=== PATIENT | male | born 1945 | race Caucasian/White ===

== ENCOUNTER 2017-12-03 09:01 | Day surgery (SDC) | payer MEDICARE, BC ==
[2017-11-30 09:03] VITALS: BMI 31.8
[~2017-12-03 09:01] MED LIST: LACTATED RINGERS 1,000 ML IV SCH
[2017-12-03 09:34] VITALS: TEMP 98.4
[2017-12-03] MEDS ORDERED: LIDOCAINE 1% 20 ML VIAL (10MG/ML) FOR IV START INTRADERMA ONE (09:47)
[2017-12-03 09:57] LABS: Glucose,Whole Blood 132 mg/dL (75-99)
[2017-12-03] MEDS ORDERED: PROPOFOL 10 MG/ML 20 ML VIAL IV ONE (10:01)
--- NOTE | 2017-12-03 10:03 | P.GSHP ---
History of Present Illness H&P Date: 12/03/17 Chief Complaint: GI bleed This is a 72-year-old male who presents today for EGD colonoscopy. Patient has history of GI bleed with blood in stool and epigastric pain. Past Medical History Past Medical History: Coronary Artery Disease (CAD), Diabetes Mellitus, Hyperlipidemia, Sleep Apnea/CPAP/BIPAP, Thyroid Disorder Additional Past Medical History / Comment(s): HAS AICD, [employer]. RECENT BLACK STOOL, WGT LOSS, ANEMIC, LIGHTHEADED, POSS GI BLEED/POSS ULCER. NOT ABLE TO USE CPAP. History of Any Multi-Drug Resistant Organisms: None Reported Past Surgical History: AICD, Coronary Bypass/CABG, Heart Catheterization Additional Past Surgical History / Comment(s): QUAD CABG 1991. ABD STENT. RT CAROTID ENDARTERECTOMY. AICD GENERATOR CHANGE. LT ELBOW BURSA EXC. Past Anesthesia/Blood Transfusion Reactions: No Reported Reaction Type of Cardiac Device: AICD Device Placement Date:: 2015 Smoking Status: Current every day smoker - Past Family History Mother Family Medical History: Cancer Additional Family Medical History / Comment(s): MULTIPLE MYELOMA Medications and Allergies Home Medications Medication Instructions Recorded Confirmed Type Aspirin 81 mg PO HS 03/30/15 12/03/17 History Atenolol [Tenormin] 50 mg PO HS 03/30/15 12/03/17 History Clopidogrel [Plavix] 75 mg PO HS 03/30/15 12/03/17 History Furosemide [Lasix] 40 mg PO PC-LUNCH 03/30/15 12/03/17 History Lisinopril [Zestril] 2.5 mg PO HS 03/30/15 12/03/17 History Metolazone [Zaroxolyn] 2.5 mg PO Q3D 03/30/15 12/03/17 History Nitroglycerin Sl Tabs [Nitrostat] 0.4 mg SUBLINGUAL Q5M PRN 03/30/15 12/03/17 History [place]-3 Fatty Acids [[place]-3] 900 mg PO BID 03/30/15 12/03/17 History Potassium Chloride [Klor-Con 20] 20 meq PO Q3D 03/30/15 12/03/17 History Vitamin D Liquid Supplement 1 drop PO PC-LUNCH 03/30/15 12/03/17 History metFORMIN HCL [Glucophage] 500 mg PO BID 03/30/15 12/03/17 History Allopurinol [Zyloprim] 300 mg PO HS 11/30/17 12/03/17 History Atorvastatin Calcium [Lipitor] 80 mg PO HS 11/30/17 12/03/17 History Ferrous Sulfate [Feosol] 325 mg PO BID 11/30/17 12/03/17 History Gemfibrozil [Lopid] 600 mg PO AC-BID 11/30/17 12/03/17 History Levothyroxine Sodium [Synthroid] 50 mcg PO DAILY 11/30/17 12/03/17 History Omeprazole [PriLOSEC] 40 mg PO DAILY 11/30/17 12/03/17 History Sucralfate [Carafate] 1 gm PO BID 11/30/17 12/03/17 History Allergies Allergy/AdvReac Type Severity Reaction Status Date / Time No Known Allergies Allergy Verified 12/03/17 09:36 Surgical - Exam Vital Signs Temp Pulse Resp BP Pulse Ox 98.4 F 90 16 137/82 98 12/03/17 09:33 12/03/17 09:33 12/03/17 09:33 12/03/17 09:33 12/03/17 09:33 - General well developed, well nourished, no distress - Eyes PERRL - ENT normal pinna - Neck no masses - Respiratory normal expansion - Cardiovascular Rhythm: regular - Abdomen Abdomen: soft, non tender Results - Labs Abnormal Lab Results - Last 24 Hours (Table) 12/03/17 Range/Units 09:55 POC Glucose (mg/dL) 132 H (75-99) mg/dL Assessment and Plan Assessment: GI bleed. We'll perform colonoscopy.
[2017-12-03 10:29] VITALS: RESP 18
--- NOTE | 2017-12-03 11:22 | P.OP ---
Date of Procedure: 12/03/17 Preoperative Diagnosis: GI bleed Epigastric pain Postoperative Diagnosis: Antral gastritis Rectal polyp Mild diverticulosis Procedure(s) Performed: EGD Colonoscopy Anesthesia: MAC Surgeon: Cipriano Acevedo Pathology: other (Antrum, rectal polyp) Condition: stable Disposition: PACU Description of Procedure: The patient's placed on the endoscopy table in the lateral position. He received IV sedation. Digital rectal exam was performed which revealed no abnormalities. Flexible colonoscope was then placed patient anus passed rotator colon. The ileocecal valve sutures. The cecum, ascending and transverse colon appeared normal. In the descending and sigmoid colon is mild diverticular changes. Scope was then brought back the rectum and a small polyp seen in the forcep. Scope was withdrawn for patient. Next the gastroscope placed oropharynx passed in the esophagus into the stomach. Scope was then placed through the pylorus. First and second portion of the duodenum appeared normal. Scope was then brought back the antrum and this was moderately inflamed. There is no ulcers seen. A biopsy the antrum performed. Scope was then retroflexed and the remainder of the stomach appeared normal. No significant hiatal hernia. The GE junction was at 40 cm the distal esophagus appeared normal. The proximal esophagus appeared normal. Scope was withdrawn for patient.
[2017-12-03] MEDS ORDERED: SODIUM CHLORIDE 0.9% 1,000 ML IV ONE (12:42)
[2017-12-03] MEDS ORDERED: LACTATED RINGERS 1,000 ML IV ONE (12:50)
--- NOTE | 2017-12-03 14:40 | P.CRDCN ---
History of Present Illness History of present illness: Mr. Latif is a pleasant 72-year-old male past medical history significant for coronary artery disease status post bypass grafting in 1991 with an SVG to the RCA, CHATTERJEE to LAD, SVG to diagonal and SVG to circumflex. Most recent heart catheterization performed in 2007 revealed the only graft patent with a CHATTERJEE to LAD. He also has ischemic cardiomyopathy last ejection fraction 2015 45%, status post AICD placement, hypertension, dyslipidemia and diabetes mellitus. He follows with Dr. Ayoub in the office. If necessary my consultation secondary to syncopal episode after colonoscopy/EGD. Per the detention recovery the patient was being prepared for discharge placed into a wheelchair and being wheeled out when she noticed he was slumped over in the chair. She immediately woke up and states that while he was getting dressed after his procedure he felt the discomfort in his chest which she frequently feels at home he took a sublingual nitroglycerin as he does regularly at home. He states the pain felt tight in the midsternal region with no radiation to the back, neck, arm or jaw. He had no associated shortness of breath, dizziness, nausea, vomiting or diaphoresis. Blood pressure was checked immediately thereafter was 151/76 with heart rate of 79. He denies any ongoing symptoms of chest pain. EKG obtained reveals left bundle branch block pattern with PVC. Review of Systems At the time of my exam: CONSTITUTIONAL: Denies fever. Denies chills. EYES: Denies blurred vision. Denies vision changes. Denies eye pain. EARS, NOSE, MOUTH & THROAT: Denies headache. Denies sore throat. Denies ear pain. CARDIOVASCULAR: Denies chest pain. Denies shortness of breath. Denies orthopnea. Denies PND. Denies palpitations. RESPIRATORY: Denies cough. GASTROINTESTINAL: Denies abdominal pain. Denies diarrhea. Denies constipation. Denies nausea. Denies vomiting. MUSCULOSKELETAL: Denies myalgias. INTEGUMENTARY: Denies pruitis. Denies rash. NEUROLOGIC: Denies numbness. Denies tingling. Denies weakness. PSYCHIATRIC: Denies anxiety. Denies depression. ENDOCRINE: Denies fatigue. Denies weight change. Denies polydipsia. Denies polyurina. GENITOURINARY: Denies burning, hematuria or urgency with micturation. HEMATOLOGIC: Denies history of anemia. Denies bleeding. Past Medical History Past Medical History: Coronary Artery Disease (CAD), Diabetes Mellitus, Hyperlipidemia, Sleep Apnea/CPAP/BIPAP, Thyroid Disorder Additional Past Medical History / Comment(s): HAS AICD, [employer]. RECENT BLACK STOOL, WGT LOSS, ANEMIC, LIGHTHEADED, POSS GI BLEED/POSS ULCER. NOT ABLE TO USE CPAP. History of Any Multi-Drug Resistant Organisms: None Reported Past Surgical History: AICD, Coronary Bypass/CABG, Heart Catheterization Additional Past Surgical History / Comment(s): QUAD CABG 1991. ABD STENT. RT CAROTID ENDARTERECTOMY. AICD GENERATOR CHANGE. LT ELBOW BURSA EXC. Past Anesthesia/Blood Transfusion Reactions: No Reported Reaction Type of Cardiac Device: AICD Device Placement Date:: 2015 Smoking Status: Current every day smoker - Past Family History Mother Family Medical History: Cancer Additional Family Medical History / Comment(s): MULTIPLE MYELOMA Medications and Allergies Home Medications Medication Instructions Recorded Confirmed Type Aspirin 81 mg PO HS 03/30/15 12/03/17 History Atenolol [Tenormin] 50 mg PO HS 03/30/15 12/03/17 History Clopidogrel [Plavix] 75 mg PO HS 03/30/15 12/03/17 History Furosemide [Lasix] 40 mg PO PC-LUNCH 03/30/15 12/03/17 History Lisinopril [Zestril] 2.5 mg PO HS 03/30/15 12/03/17 History Metolazone [Zaroxolyn] 2.5 mg PO Q3D 03/30/15 12/03/17 History Nitroglycerin Sl Tabs [Nitrostat] 0.4 mg SUBLINGUAL Q5M PRN 03/30/15 12/03/17 History [place]-3 Fatty Acids [[place]-3] 900 mg PO BID 03/30/15 12/03/17 History Potassium Chloride [Klor-Con 20] 20 meq PO Q3D 03/30/15 12/03/17 History Vitamin D Liquid Supplement 1 drop PO PC-LUNCH 03/30/15 12/03/17 History metFORMIN HCL [Glucophage] 500 mg PO BID 03/30/15 12/03/17 History Allopurinol [Zyloprim] 300 mg PO HS 11/30/17 12/03/17 History Atorvastatin Calcium [Lipitor] 80 mg PO HS 11/30/17 12/03/17 History Ferrous Sulfate [Feosol] 325 mg PO BID 11/30/17 12/03/17 History Gemfibrozil [Lopid] 600 mg PO AC-BID 11/30/17 12/03/17 History Levothyroxine Sodium [Synthroid] 50 mcg PO DAILY 11/30/17 12/03/17 History Omeprazole [PriLOSEC] 40 mg PO DAILY 11/30/17 12/03/17 History Sucralfate [Carafate] 1 gm PO BID 11/30/17 12/03/17 History Allergies Allergy/AdvReac Type Severity Reaction Status Date / Time No Known Allergies Allergy Verified 12/03/17 09:36 Physical Exam Vitals: Vital Signs Temp Pulse Resp BP BP Pulse Ox 12/03/17 11:45 78 18 162/67 99 12/03/17 11:36 55 L 18 162/67 96 12/03/17 11:02 79 18 151/76 99 12/03/17 10:27 75 18 130/68 97 12/03/17 09:33 98.4 F 90 16 137/82 98 Intake and Output 12/02/17 12/03/17 12/03/17 22:59 06:59 14:59 Intake Total 300 Balance 300 Intake: IV 300 Blood pressure 162/67 heart rate 55 afebrile maintaining oxygen saturation on room air GENERAL: This is a 72-year-old male in no apparent distress at the time of my examination. HEENT: Head is atraumatic, normocephalic. Pupils are equal, round. Sclerae anicteric. Conjunctivae are clear. Mucous membranes of the mouth are moist. Neck is supple. There is no jugular venous distention. No carotid bruit is heard. LUNGS: Clear to auscultation no wheezes, rales or rhonchi. No chest wall tenderness is noted on palpation or with deep breathing. HEART: Irregular rate and rhythm without murmurs, rubs or gallops. S1 and S2 heard. ABDOMEN: Soft, nontender. Bowel sounds are heard. No organomegaly noted. EXTREMITIES: No evidence of peripheral edema and no calf tenderness noted. VASCULAR: Radial and dorsalis pedis pulses palpated, no evidence of clubbing. NEUROLOGIC: Patient is awake, alert and oriented x3. Results Current Medications Generic Name Dose Route Start Last Admin Trade Name Gamaliel PRN Reason Stop Dose Admin Lactated Ringer's 1,000 mls @ 20 mls/hr 12/03/17 05:36 12/03/17 09:48 Lactated Ringers IV 800 mls .Q24H AARON Administration Intake and Output 12/02/17 12/03/17 12/03/17 22:59 06:59 14:59 Intake Total 300 Balance 300 Intake: IV 300 Assessment and Plan Assessment: ASSESSMENT Syncope status post EGD/colonoscopy History of coronary artery disease status post bypass grafting History of ischemic cardiomyopathy ejection fraction 45% status post AICD pacemaker implantation Hypertension Dyslipidemia Diabetes mellitus Peripheral vascular disease PLAN Give 1-liter of IV fluids slowly over the next 90 minutes. Fee the patient and encouraged PO intake of water. Repeat blood pressure after bolus. If no further syncope, he is stable from a cardiac perspective. Thank you kindly for this consultation. Nurse Practitioner note has been reviewed, I agree with a documented findings and plan of care. Patient was seen and examined.
[2017-12-03 15:26] VITALS: PULSE 94
[2017-12-03 15:29] VITALS: BP 127/71
--- NOTE | 2017-12-06 08:13 | CDI ---
Date: 12/06/17 CDS/Audio Operator Name: Lise Enciso Phone: If any questions, call Brenna Petty Captain Waiter/Waitress at [phone] Patient Name: Christian Latif Admit Date: 12/03/17 Discharge Date: 12/03/17 ATTENTION: The [facility] Coding Staff appreciate your assistance in clarifying documentation. Please respond to the clarification below the line at the bottom and electronically sign. The [facility] Coding staff will review the response and follow-up if needed. Please note: Queries are made part of the Legal Health Record. If you have any questions, please contact the Captain Waiter/Waitress. Dear Dr. Acevedo, Please provide clarification as to the method used to remove the rectal polyp. Also, please provide clarification for the cause of the GI Bleed. Please clarify if the polyp was removed with hot or cold biopsy forceps and if the GI bleed is secondary to any of the conditions found (gastritis, Diverticulosis, polyp). Thank you for your kind consideration. The cold forcep was used. I'm unable to determine the source of GI bleed MTDD
== END 2017-12-03 15:40 | disposition home or self-care (01) ==
LOC: ORWHC2ENDO 09:01
PROVIDERS: ATTEND Surgery
DX: K57.90 Diverticulosis of intestine, part unspecified, without perforation or abscess without bleeding (principal); K29.50 Unspecified chronic gastritis without bleeding; K62.1 Rectal polyp; I25.10 Atherosclerotic heart disease of native coronary artery without angina pectoris; I10 Essential (primary) hypertension; E11.9 Type 2 diabetes mellitus without complications; Z79.84 Long term (current) use of oral hypoglycemic drugs; E78.5 Hyperlipidemia, unspecified; G47.33 Obstructive sleep apnea (adult) (pediatric); E07.9 Disorder of thyroid, unspecified; Z95.810 Presence of automatic (implantable) cardiac defibrillator; Z95.1 Presence of aortocoronary bypass graft; F17.200 Nicotine dependence, unspecified, uncomplicated; Z79.02 Long term (current) use of antithrombotics/antiplatelets; Z79.82 Long term (current) use of aspirin; Z79.890 Hormone replacement therapy; Z79.899 Other long term (current) drug therapy; R55 Syncope and collapse; I44.7 Left bundle-branch block, unspecified
CPT/HCPCS: 93005; 88305; 45380; 43239; J2704

== ENCOUNTER 2018-02-04 09:24 | Day surgery (SDC) | payer MEDICARE, BC ==
[~2018-02-04 09:24] MED LIST changes: +ALPRAZolam 0.25 MG TAB PO PRN; +ALPRAZolam 0.5 MG TAB PO PRN; +ASPIRIN 325 MG TAB PO ONE; +ATORVASTATIN 80 MG TAB PO ONE; -LACTATED RINGERS 1,000 ML IV SCH; +NITROGLYCERIN SL TABS 0.4 MG TAB SUBLINGUAL PRN; +SODIUM CHLORIDE 0.9% 1,000 ML in EMPTY BAG 1 BAG IV ONE
[2018-02-04 10:12] LABS: Glucose,Whole Blood 155 mg/dL (75-99)
[2018-02-04] MEDS ORDERED: SODIUM CHLORIDE 0.9% 1,000 ML IV ONE (10:14)
[2018-02-04 10:29] VITALS: RESP 16
[2018-02-04 10:29] LABS: Basophils % (A) 0 %; Eosinophils # (A) 0.3 k/uL (0-0.7); Eosinophils % (A) 3 %; HCT 35.7 % (39.0-53.0); HGB 11.2 gm/dL (13.0-17.5); Lymphocytes # (A) 2.6 k/uL (1.0-4.8); Lymphocytes % (A) 27 %; MCH 28.5 pg (25.0-35.0); MCHC 31.5 g/dL (31.0-37.0); MCV 90.5 fL (80.0-100.0); Mean Platelet Volume 8.2; Monocytes # (A) 0.6 k/uL (0-1.0); Monocytes % (A) 7 %; Neutrophils # (A) 5.7 k/uL (1.3-7.7); Neutrophils % (A) 60 %; Platelet Count 218 k/uL (150-450); RBC 3.95 m/uL (4.30-5.90); RDW 15.4 % (11.5-15.5); WBC 9.5 k/uL (3.8-10.6)
[2018-02-04] MEDS ORDERED: ASPIRIN 81 MG ONE (10:30)
[2018-02-04 10:36] LABS: Calcium 9.8 mg/dL (8.4-10.2); Potassium 3.7 mmol/L (3.5-5.1)
[2018-02-04] MEDS ORDERED: SODIUM CHLORIDE 0.9% 1,000 ML IV SCH ×2 (11:00→12:15)
[2018-02-04] MEDS ORDERED: LIDOCAINE 1% INJ 10MG/ML (20 ML MDV) ONE (11:37)
[2018-02-04] MEDS ORDERED: MIDAZOLAM 2 MG/2 ML VIAL ONE (11:38)
[2018-02-04] MEDS ORDERED: fentaNYL (PF) 50 MCG/ML 2 ML AMP ONE (11:44)
[2018-02-04] MEDS ORDERED: MIDAZOLAM 2 MG/2 ML VIAL IV ONE (11:45)
[2018-02-04] MEDS ORDERED: LIDOCAINE 1% INJ 10MG/ML (20 ML MDV) SQ ONE (11:48)
[2018-02-04] MEDS ORDERED: RX INFO: IV CONTRAST WAS GIVEN 1 EACH MISC MISCELLANE PRN (12:12)
[2018-02-04] MEDS ORDERED: IOPAMIDOL-370 125ML BTL INJ ONE (12:12)
[2018-02-04 16:54] LABS: Glucose,Whole Blood 143 mg/dL (75-99)
[2018-02-04 16:57] VITALS: BP 130/60; PULSE 46; TEMP 97.7
[2018-02-04 17:10] VITALS: BMI 30.2
--- NOTE | 2018-02-05 18:42 | P.CARDCATH ---
Date of Procedure: 02/05/18 Preoperative Diagnosis: Ischemic cardiac myopathy, sustained ventricular tachycardia requiring shock from AICD. Rule out progression of ischemic heart disease Postoperative Diagnosis: The same Procedure(s) Performed: Left heart catheterization without left ventriculography Description of Procedure: HISTORY: This is a 72-year-old gentleman with history of previous bypass surgery , cardiomyopathy status post AICD placement. Recently patient was found to have an episode of ventricular fibrillation requiring shock from the AICD. Patient is advised to have cardiac catheterization to rule out any progression of ischemic heart disease. CONSENT:I have discussed the risks, benefits and alternative therapies for the above-mentioned procedure and for both sedation/analgesia as well as necessary blood product administration, if indicated, as they pertain to this patient. The patient has indicated understanding and acceptance of the risks and procedures discussed. PROCEDURE: Patient was brought to the lab in a fasting state. Patient was given some IV sedation. The right groin is infiltrated with lidocaine and right femoral artery was entered using Seldinger technique. A 6-Pashto catheter was left in place and selective coronary arteriography including selective injection of the CHATTERJEE graft was performed. Patient tolerated the procedure well. Femoral angiogram was performed and manual compression was applied for hemostasis. No immediate complications were noted and patient was transferred to [facility] in a stable condition Conscious Sedation: Versed 1mg Fentanyl 50 g Duration 30 minutes HEMODYNAMICS:. The aortic pressure is about 130/70. Left ventricular end- diastolic pressure was not obtained SELECTIVE CORONARY ARTERIOGRAPHY: LEFT MAIN: Normal length with the mild to moderate distal disease with 30-40 personal stenosis. No significant progression compared to the previous studies THE LEFT ANTERIOR DESCENDING CORONARY ARTERY:. This is totally occluded THE LEFT CIRCUMFLEX AND IS CORONARY ARTERY:. This is a moderate caliber vessel showing about 40-50% lesion in the proximal portion. No Sigmund progression compared to the previous studies THE RIGHT CORONARY ARTERY: Is totally occluded. THE CHATTERJEE GRAFT TO THE LAD: This is patent throat its length and also the distal anastomosis. The LAD beyond the anastomosis appeared free of occlusive disease. THE VEIN GRAFTS: All vein grafts are documented to be totally occluded from the previous studies. COLLATERALS: There are extensive collaterals from the left system to the right coronary artery. LEFT VENTRICULOGRAPHY: Not performed. Because of his renal failure least amount of dye was used of study FINAL IMPRESSION: Stable coronary artery disease with patent CHATTERJEE graft to the LAD PLAN: Continued medical therapy PROGNOSIS:. Fair
== END 2018-02-04 19:45 | disposition home or self-care (01) ==
LOC: CATHCVL 09:24 → 1SOBS 12:06 → CATHCVL 19:45
PROVIDERS: ATTEND Internal Medicine Cardiovascular Disease
DX: I25.10 Atherosclerotic heart disease of native coronary artery without angina pectoris (principal); I25.82 Chronic total occlusion of coronary artery; I10 Essential (primary) hypertension; E78.5 Hyperlipidemia, unspecified; I25.9 Chronic ischemic heart disease, unspecified; I49.01 Ventricular fibrillation; E78.00 Pure hypercholesterolemia, unspecified; F17.200 Nicotine dependence, unspecified, uncomplicated; E66.9 Obesity, unspecified; I25.2 Old myocardial infarction; Z79.02 Long term (current) use of antithrombotics/antiplatelets; Z79.82 Long term (current) use of aspirin; Z79.899 Other long term (current) drug therapy; Z79.890 Hormone replacement therapy; Z95.1 Presence of aortocoronary bypass graft; Z95.810 Presence of automatic (implantable) cardiac defibrillator; Z79.84 Long term (current) use of oral hypoglycemic drugs; Z68.30 Body mass index [BMI] 30.0-30.9, adult
CPT/HCPCS: 80048; 85025; 93459; J2250; J2001; Q9967; 93458

== ENCOUNTER 2020-05-21 07:30 | Inpatient (IN) | payer MEDICARE, BC ==
--- NOTE | 2020-05-21 07:43 | ED ---
Dizziness HPI - General Chief Complaint: Dizziness Stated Complaint: dizziness Time Seen by Provider: 05/21/20 07:30 Source: patient, EMS, RN notes reviewed, old records reviewed Mode of arrival: EMS - History of Present Illness Initial Comments: This is a 74-year-old male with a history of hypertension diabetes and AICD who states that he's been slightly lightheaded and weak exertional dyspnea and generally no strength. No overt chest pain does states his AICD went off about a week ago he saw his post secondary professional several days later was placed on amiodarone which was about 3 days ago. He states he relates only symptoms to the amiodarone. He denies any fevers chills nausea vomiting sweats he states he leaves he is eating adequately. He states he is under last stress as his about a month ago he's been dealing with that. No other current complaints or modifying factors MD Complaint: dizziness, lightheadedness, other - Related Data Home Medications Medication Instructions Recorded Confirmed Aspirin 81 mg PO DAILY@0030 03/30/15 05/21/20 Clopidogrel [Plavix] 75 mg PO DAILY@00303/30/15 05/21/20 Vitamin D Liquid Supplement 1 drop PO PC-LUNCH 03/30/15 05/21/20 atenoloL [Tenormin] 50 mg PO DAILY@2903/30/15 05/21/20 lisinopriL [Zestril] 2.5 mg PO DAILY@00303/30/15 05/21/20 Atorvastatin Calcium [Lipitor] 80 mg PO DAILY@00311/30/17 05/21/20 Ferrous Sulfate [Iron (65 MG 325 mg PO BID@003,122911/30/17 05/21/20 Elemental)] Gemfibrozil [Lopid] 600 mg PO BID@0030,12311/30/17 05/21/20 Levothyroxine Sodium [Synthroid] 50 mcg PO AC-BRKFST 11/30/17 05/21/20 Sucralfate [Carafate] 1 gm PO BID@0030,12311/30/17 05/21/20 allopurinoL [Zyloprim] 300 mg PO DAILY@00311/30/17 05/21/20 Amiodarone HCl [Pacerone] See Taper PO Q12H 05/21/20 05/21/20 metFORMIN HCL [Glucophage] 500 mg PO BID@0030,1230 05/21/20 05/21/20 Previous Rx's Medication Instructions Recorded Nitroglycerin Sl Tabs [Nitrostat] 0.4 mg SUBLINGUAL Q5M PRN tab 02/04/18 Allergies Allergy/AdvReac Type Severity Reaction Status Date / Time No Known Allergies Allergy Verified 05/21/20 09:40 Review of Systems ROS Statement: Those systems with pertinent positive or pertinent negative responses have been documented in the HPI. ROS Other: All systems not noted in ROS Statement are negative. Past Medical History Past Medical History: Blood Disorder, Coronary Artery Disease (CAD), Chest Pain / Angina, Diabetes Mellitus, Eye Disorder, GERD/Reflux, Hyperlipidemia, Sleep Apnea/CPAP/BIPAP, Thyroid Disorder Additional Past Medical History / Comment(s): HAS AICD, [employer]. BLACK STOOL 11/2017, WGT LOSS, ANEMIC, LIGHTHEADED, TOLD D/T GASTRITIS - HAD CP AFTER ENDO PROC 11/2017. NOT ABLE TO USE CPAP. SADI CATARACTS. GOUT. History of Any Multi-Drug Resistant Organisms: None Reported Past Surgical History: AICD, Coronary Bypass/CABG, Heart Catheterization, Orthopedic Surgery Additional Past Surgical History / Comment(s): QUAD CABG 1991. ABD STENT. RT CAROTID ENDARTERECTOMY. AICD, GENERATOR CHANGE. LT ELBOW BURSA EXC. EGD, COLONOSCOPY 12/03/17. Past Anesthesia/Blood Transfusion Reactions: No Reported Reaction Type of Cardiac Device: AICD Device Placement Date:: 2015 Past Psychological History: No Psychological Hx Reported Smoking Status: Current every day smoker Past Alcohol Use History: Rare Past Drug Use History: None Reported - Past Family History Father Family Medical History: Myocardial Infarction (SC) Additional Family Medical History / Comment(s): AT 60 WITH SC Brother(s) Family Medical History: Coronary Artery Disease (CAD) Additional Family Medical History / Comment(s): CABG-TWIN BROTHER Mother Family Medical History: Cancer Additional Family Medical History / Comment(s): MULTIPLE MYELOMA General Exam - General Exam Comments Initial Comments: This is a well-developed well-nourished awake alert oriented 3 male General appearance: alert, anxious Head exam: Present: atraumatic, normocephalic, normal inspection Eye exam: Present: normal appearance, PERRL, EOMI. Absent: scleral icterus, conjunctival injection, periorbital swelling ENT exam: Present: normal exam, mucous membranes moist Neck exam: Present: normal inspection, full ROM, other (No stridor JVD or bruits). Absent: tenderness, meningismus, lymphadenopathy Respiratory exam: Present: normal lung sounds bilaterally, other (AICD generator noted in the left upper chest wall subcutaneously). Absent: respiratory distress, wheezes, rales, rhonchi, stridor Cardiovascular Exam: Present: regular rate, normal rhythm, normal heart sounds. Absent: systolic murmur, diastolic murmur, rubs, gallop, clicks GI/Abdominal exam: Present: soft, normal bowel sounds. Absent: distended, tenderness, guarding, rebound, rigid, bruit, pulsatile mass Extremities exam: Present: normal inspection, full ROM, normal capillary refill. Absent: tenderness, pedal edema, joint swelling, calf tenderness Back exam: Present: normal inspection Neurological exam: Present: alert, oriented X3, CN II-XII intact Psychiatric exam: Present: normal affect, normal mood Skin exam: Present: warm, dry, intact, normal color. Absent: rash Course Vital Signs 05/21/20 05/21/20 05/21/20 07:34 08:18 09:48 Temperature 98.3 F Pulse Rate 77 73 Respiratory 18 18 Rate Blood Pressure 113/70 112/77 Blood Pressure 127/83 [Left Arm Sitting] Blood Pressure 128/67 [Left Arm Standing] Blood Pressure 127/94 [Left Arm Supine] O2 Sat by Pulse 98 97 Oximetry - Reevaluation(s) Reevaluation #1: 05/21/20 10:51 Elevated lactic acid is likely due to intravascular volume depletion not infectious etiology EKG Findings - EKG Results: EKG: interpreted by ERMD (Atrial fibrillation rate 76 QRS 148 QT since QTC 446/501 at that exodeviation left bundle-branch block) Medical Decision Making - Medical Decision Making I did discuss findings with patient family patient does have evidence of CHF as well as hypomagnesemia he will be admitted discussed with Dr. Pascual's group covering for Dr. Grullon - Lab Data Result diagrams: 05/21/20 07:50 05/21/20 07:50 Lab Results 05/21/20 05/21/2021 Range/Units 07:39 07:50 07:50 WBC 9.6 (3.8-10.6) k/uL RBC 3.87 L (4.30-5.90) m/uL Hgb 11.6 L (13.0-17.5) gm/dL Hct 35.8 L (39.0-53.0) % MCV 92.3 (80.0-100.0) fL MCH 29.9 (25.0-35.0) pg MCHC 32.4 (31.0-37.0) g/dL RDW 15.2 (11.5-15.5) % Plt Count 215 (150-450) k/uL MPV 8.9 Neutrophils % 65 % Lymphocytes % 24 % Monocytes % 7 % Eosinophils % 3 % Basophils % 1 % Neutrophils # 6.2 (1.3-7.7) k/uL Lymphocytes # 2.3 (1.0-4.8) k/uL Monocytes # 0.7 (0-1.0) k/uL Eosinophils # 0.3 (0-0.7) k/uL Basophils # 0.0 (0-0.2) k/uL PT 10.6 (9.0-12.0) sec INR 1.0 (<1.2) APTT 23.1 (22.0-30.0) sec Sodium (137-145) mmol/L Potassium (3.5-5.1) mmol/L Chloride (98-107) mmol/L Carbon Dioxide (22-30) mmol/L Anion Gap mmol/L BUN (9-20) mg/dL Creatinine (0.66-1.25) mg/dL Est GFR (CKD-EPI)AfAm (>60 ml/min/1.73 sqM) Est GFR (CKD-EPI)NonAf (>60 ml/min/1.73 sqM) Glucose (74-99) mg/dL Lactic Ac Sepsis Rflx Plasma Lactic Acid Guy (0.7-2.0) mmol/L Calcium (8.4-10.2) mg/dL Magnesium (1.6-2.3) mg/dL Total Bilirubin (0.2-1.3) mg/dL AST (17-59) U/L ALT (4-49) U/L Alkaline Phosphatase (38-126) U/L Creatine Kinase (55-170) U/L Troponin I (0.000-0.034) ng/mL NT-Pro-B Natriuret Pep 5090 pg/mL Total Protein (6.3-8.2) g/dL Albumin (3.5-5.0) g/dL Urine Color Urine Appearance (Clear) Urine pH (5.0-8.0) Ur Specific Minto (1.001-1.035) Urine Protein (Negative) Urine Glucose (UA) (Negative) Urine Ketones (Negative) Urine Blood (Negative) Urine Nitrite (Negative) Urine Bilirubin (Negative) Urine Urobilinogen (<2.0) mg/dL Ur Leukocyte Esterase (Negative) Coronavirus (PCR) (Not Detectd) 05/21/20 05/21/20 05/21/20 Range/Units 07:50 07:50 07:50 WBC (3.8-10.6) k/uL RBC (4.30-5.90) m/uL Hgb (13.0-17.5) gm/dL Hct (39.0-53.0) % MCV (80.0-100.0) fL MCH (25.0-35.0) pg MCHC (31.0-37.0) g/dL RDW (11.5-15.5) % Plt Count (150-450) k/uL MPV Neutrophils % % Lymphocytes % % Monocytes % % Eosinophils % % Basophils % % Neutrophils # (1.3-7.7) k/uL Lymphocytes # (1.0-4.8) k/uL Monocytes # (0-1.0) k/uL Eosinophils # (0-0.7) k/uL Basophils # (0-0.2) k/uL PT (9.0-12.0) sec INR (<1.2) APTT (22.0-30.0) sec Sodium 140 (137-145) mmol/L Potassium 3.7 (3.5-5.1) mmol/L Chloride 105 (98-107) mmol/L Carbon Dioxide 24 (22-30) mmol/L Anion Gap 11 mmol/L BUN 26 H (9-20) mg/dL Creatinine 1.43 H (0.66-1.25) mg/dL Est GFR (CKD-EPI)AfAm 55 (>60 ml/min/1.73 sqM) Est GFR (CKD-EPI)NonAf 48 (>60 ml/min/1.73 sqM) Glucose 150 H (74-99) mg/dL Lactic Ac Sepsis Rflx Plasma Lactic Acid Guy 2.1 H* (0.7-2.0) mmol/L Calcium 9.2 (8.4-10.2) mg/dL Magnesium 1.5 L (1.6-2.3) mg/dL Total Bilirubin 0.5 (0.2-1.3) mg/dL AST 47 (17-59) U/L ALT 40 (4-49) U/L Alkaline Phosphatase 203 H (38-126) U/L Creatine Kinase 43 L (55-170) U/L Troponin I <0.012 (0.000-0.034) ng/mL NT-Pro-B Natriuret Pep pg/mL Total Protein 7.0 (6.3-8.2) g/dL Albumin 4.0 (3.5-5.0) g/dL Urine Color Urine Appearance (Clear) Urine pH (5.0-8.0) Ur Specific Minto (1.001-1.035) Urine Protein (Negative) Urine Glucose (UA) (Negative) Urine Ketones (Negative) Urine Blood (Negative) Urine Nitrite (Negative) Urine Bilirubin (Negative) Urine Urobilinogen (<2.0) mg/dL Ur Leukocyte Esterase (Negative) Coronavirus (PCR) (Not Detectd) 05/21/20 05/21/20 05/21/20 Range/Units 08:12 08:28 09:45 WBC (3.8-10.6) k/uL RBC (4.30-5.90) m/uL Hgb (13.0-17.5) gm/dL Hct (39.0-53.0) % MCV (80.0-100.0) fL MCH (25.0-35.0) pg MCHC (31.0-37.0) g/dL RDW (11.5-15.5) % Plt Count (150-450) k/uL MPV Neutrophils % % Lymphocytes % % Monocytes % % Eosinophils % % Basophils % % Neutrophils # (1.3-7.7) k/uL Lymphocytes # (1.0-4.8) k/uL Monocytes # (0-1.0) k/uL Eosinophils # (0-0.7) k/uL Basophils # (0-0.2) k/uL PT (9.0-12.0) sec INR (<1.2) APTT (22.0-30.0) sec Sodium (137-145) mmol/L Potassium (3.5-5.1) mmol/L Chloride (98-107) mmol/L Carbon Dioxide (22-30) mmol/L Anion Gap mmol/L BUN (9-20) mg/dL Creatinine (0.66-1.25) mg/dL Est GFR (CKD-EPI)AfAm (>60 ml/min/1.73 sqM) Est GFR (CKD-EPI)NonAf (>60 ml/min/1.73 sqM) Glucose (74-99) mg/dL Lactic Ac Sepsis Rflx Y Plasma Lactic Acid Guy (0.7-2.0) mmol/L Calcium (8.4-10.2) mg/dL Magnesium (1.6-2.3) mg/dL Total Bilirubin (0.2-1.3) mg/dL AST (17-59) U/L ALT (4-49) U/L Alkaline Phosphatase (38-126) U/L Creatine Kinase (55-170) U/L Troponin I (0.000-0.034) ng/mL NT-Pro-B Natriuret Pep pg/mL Total Protein (6.3-8.2) g/dL Albumin (3.5-5.0) g/dL Urine Color Yellow Urine Appearance Clear (Clear) Urine pH 6.0 (5.0-8.0) Ur Specific Minto 1.018 (1.001-1.035) Urine Protein Trace H (Negative) Urine Glucose (UA) Negative (Negative) Urine Ketones Negative (Negative) Urine Blood Negative (Negative) Urine Nitrite Negative (Negative) Urine Bilirubin Negative (Negative) Urine Urobilinogen 2.0 (<2.0) mg/dL Ur Leukocyte Esterase Negative (Negative) Coronavirus (PCR) Not Detected (Not Detectd) - Radiology Data Radiology results: report reviewed (G reviewed evidence of congestive failure please see complete report), image reviewed Critical Care Time Critical Care Time: Yes Total Critical Care Time: 31 Critical Care Time: Critical care time includes initial presentation with history physical labs x- rays multiple reevaluation patient response to therapy discussed with paramedics upon arrival discuss the patient family discuss with the admitting service revealed old charting they'll wall documentation above and admission orders Disposition Clinical Impression: Congestive heart failure (CHF), Hypomagnesemia syndrome, Weakness, Renal insufficiency syndrome Disposition: ADMITTED IP TO THIS [facility] Condition: Fair Referrals: Ryann Grullon DO [Primary Care Provider] - 1-2 days
[2020-05-21 08:04] LABS: Basophils % (A) 1 %; Eosinophils # (A) 0.3 k/uL (0-0.7); Eosinophils % (A) 3 %; HCT 35.8 % (39.0-53.0); HGB 11.6 gm/dL (13.0-17.5); Lymphocytes # (A) 2.3 k/uL (1.0-4.8); Lymphocytes % (A) 24 %; MCH 29.9 pg (25.0-35.0); MCHC 32.4 g/dL (31.0-37.0); MCV 92.3 fL (80.0-100.0); Mean Platelet Volume 8.9; Monocytes # (A) 0.7 k/uL (0-1.0); Monocytes % (A) 7 %; Neutrophils # (A) 6.2 k/uL (1.3-7.7); Neutrophils % (A) 65 %; Platelet Count 215 k/uL (150-450); RBC 3.87 m/uL (4.30-5.90); RDW 15.2 % (11.5-15.5); WBC 9.6 k/uL (3.8-10.6)
--- NOTE | 2020-05-21 08:04 | XR ---
EXAMINATION TYPE: XR chest 2V DATE OF EXAM: 05/21/2020 COMPARISON: None INDICATION: Weakness 8 dictated TECHNIQUE: Frontal and lateral views of the chest are obtained. FINDINGS: The heart size is normal. The pulmonary vasculature is prominent. Diffuse increased lung markings are present bilaterally. Correlate for early volume overload.. Sternotomy wires are present from prior CABG. Pacemaker overlies the left chest. IMPRESSION: 1. Prominent pulmonary vascular arcuate with diffuse increased lung markings. Correlate for volume ov erload.
[2020-05-21 08:18] LABS: Partial Thromboplastin Time 23.1 sec (22.0-30.0); Prothrombin Time 10.6 sec (9.0-12.0)
[2020-05-21 08:19] LABS: Calcium 9.2 mg/dL (8.4-10.2); Magnesium 1.5 mg/dL (1.6-2.3); Potassium 3.7 mmol/L (3.5-5.1); Total Bilirubin 0.5 mg/dL (0.2-1.3)
[2020-05-21 08:25] LABS: Appearance,Urine Clear (Clear); Bilirubin,Urine Negative (Negative); Blood,Urine Negative (Negative); Color,Urine Yellow; Glucose,Urine (UA) Negative (Negative); Ketones,Urine Negative (Negative); Leukocyte Esterase,Urine Negative (Negative); Nitrite,Urine Negative (Negative); Protein,Urine Trace (Negative); Specific Gravity,Urine 1.018 (1.001-1.035)
[2020-05-21] MEDS ORDERED: SODIUM CHLORIDE 0.9% 1,000 ML IV STA (08:29)
[2020-05-21] MEDS ORDERED: MAGNESIUM SULFATE-D5W PMX 1 GM in DEXTROSE/WATER 1 100ML.BAG IVPB ONE (09:18)
[2020-05-21] MEDS ORDERED: FUROSEMIDE 10 MG/ML 4 ML VIAL IV STA (09:23)
[2020-05-21] MEDS ORDERED: NITROGLYCERIN SL TABS 0.4 MG TAB SUBLINGUAL PRN (10:54)
[2020-05-21] MEDS: SODIUM CHLORIDE 0.9% 1,000 ML IV SCH (14:12)
[2020-05-21] MEDS: metFORMIN 500 MG TAB PO SCH ×2 (14:12→21:42)
[2020-05-21] MEDS: AMIODARONE 200 MG TAB PO SCH ×2 (14:12→21:42)
[2020-05-21] MEDS: FERROUS SULFATE 325 MG TAB PO SCH ×2 (14:12→21:42)
[2020-05-21] MEDS: SUCRALFATE 1 GM TAB PO SCH ×2 (14:12→21:42)
[2020-05-21] MEDS: CHOLECALCIFEROL 25 MCG (1000 IU) TABLET PO SCH (14:13)
[2020-05-21] MEDS: FUROSEMIDE 40 MG TAB PO SCH ×2 (15:38→21:41)
[2020-05-21 15:45] VITALS: BMI 28.5
[2020-05-21 16:45] LABS: Glucose,Whole Blood 140 mg/dL (75-99)
[2020-05-21] MEDS ORDERED: HYDROcodone/APAP 5-325MG 1 EACH TAB PO PRN (17:50)
--- NOTE | 2020-05-21 18:41 | CT ---
EXAMINATION TYPE: CT chest wo con DATE OF EXAM: 05/21/2020 COMPARISON: Difficulty breathing HISTORY: Bilateral lower lung lesions and difficulty breathing. CT DLP: 551.5 mGycm Automated exposure control for dose reduction was used. There is coarse interstitial infiltrate throughout both lungs. There are small bilateral pleural effu sions. Heart is borderline enlarged. There are sternal wires. Thoracic aorta is atheromatous. There i s no aneurysm. The ascending aorta measures 3.4 cm. There is no pericardial effusion. There is some s purring in the thoracic spine. There is stent in the upper abdominal aorta. IMPRESSION: Atherosclerotic vascular disease. Mild cardiomegaly. Small pleural effusions and pulmonary interstiti al infiltrates could relate to congestive heart failure. Interstitial pneumonia also possible.
[2020-05-21 19:01] LABS: C Reactive Protein 13.5 mg/L (<10.0)
[2020-05-21] MEDS: ALPRAZolam 0.25 MG TAB PO PRN (19:24)
--- NOTE | 2020-05-21 19:34 | HP ---
HISTORY AND PHYSICAL DATE OF SERVICE: 05/21/2020 CHIEF COMPLAINTS: Dizziness, weakness and as well as lightheadedness, shortness of breath. HISTORY OF PRESENT ILLNESS: This 74-year-old gentleman with a past medical history of multiple medical problems including CAD, history of CHF, diabetes mellitus, type 2, GERD, hypertension, hyperlipidemia, history of CAD, CABG, history of myocardial infarction, pneumonia, being followed by Dr. Ryann Grullon in the outpatient setting is complaining of not feeling well over the past several days. The patient has initially dizziness and some weakness. The patient is also slightly lightheaded. The patient also has some exertional dyspnea and the patient reports . The patient had recently AICD was going off. The patient came to [facility] and was admitted for evaluation and treatment. Hemoglobin is found to be 11.2. Chest x-ray showed bilateral lower lobe lesions which I reviewed personally. Creatinine is elevated 1.43. D-dimer is not available at this time. The initial COVID 19 is negative. There is no history of fever, rigors. No history of headache, loss of consciousness. Magnesium was found to be 1.5, which is being replaced at this time. The patient also complaining of tremendous stress associated with his spouse passing away a month ago after having a malignancy, was on hospice. PAST MEDICAL HISTORY: History of CAD, history of CHF, diabetes type 2, history of GI bleed, hypertension, hyperlipidemia. MEDICATIONS: Medications prior to admission: Home medications are aspirin, Pacerone, vitamin D, Nitrostat, Synthroid, Carafate, Lopid, iron, Glucophage, Zestril, Tenormin, Plavix. Lipitor and Zyloprim. ALLERGIES: None. FAMILY HISTORY: History of myocardial infarction in the family. SOCIAL HISTORY: History of alcohol and smoking. REVIEW OF SYSTEMS: ENT: No diminished vision. No diminished hearing. CARDIOVASCULAR: As mentioned earlier. RESPIRATORY: As mentioned earlier. GI: No nausea or vomiting. : No dysuria. NERVOUS SYSTEM: No numbness or weakness. ALLERGY/IMMUNOLOGY: No asthma or hayfever. MUSCULOSKELETAL as mentioned earlier. HEMATOLOGY/ONCOLOGY: No history of anemia. ENDOCRINE: No history of diabetes or hypothyroidism. CONSTITUTIONAL: As mentioned earlier. DERMATOLOGY: Negative. RHEUMATOLOGY negative. PSYCHIATRY as mentioned earlier. PHYSICAL EXAMINATION: Alert and oriented times three. Pulse 73, blood pressure 134/79, respiration 18, temperature 97.7, pulse ox 98% on room air. HEENT: Conjunctivae normal. NECK: No JVD. CARDIOVASCULAR: S1, S2 muffled. RESPIRATION: Breath sounds diminished in the bases. A few scattered rhonchi and crackles. ABDOMEN: Soft, nontender. LEGS: No edema. No swelling. NERVOUS SYSTEM: Higher functions as mentioned earlier. Moves all 4 limbs. No focal motor or sensory deficits. LYMPHATICS: No lymph nodes palpable in the neck, axillae or groin. SKIN: No ulcer, no rash and no bleeding. JOINTS: No active deforming arthropathy. LABS: The BUN is 26, creatinine is 1.43, glucose 140, magnesium 1.5. Creatinine kinase 43. WBC 9.2, hemoglobin 11.6. ASSESSMENT: 1. Generalized weakness and tiredness for evaluation, possible congestive heart failure acute exacerbation with ejection fraction unknown. 2. Bilateral lower lobe lung lesions. 3. History of ischemic cardiomyopathy with sustained ventricular tachycardia with AICD shocks. 4. Increased creatinine with chronic kidney disease stage 3. 5. Anemia, normocytic anemia of chronic disease. 6. Hypomagnesemia. 7. History of coronary artery disease, coronary artery bypass grafting. 8. Diabetes mellitus type 2. 9. Gastroesophageal reflux disease. 10.History of gastrointestinal bleed. 11.Hypertension. 12.Hyperlipidemia. 13.History of sleep apnea. 14.History of syncope. 15.History of hypothyroidism. 16.History of abdominal aortic aneurysm, and Endo graft and stent. 17.History of nicotine dependence, continued ongoing. 18.Social stressors. RECOMMENDATIONS AND DISCUSSION: This 74-year-old gentleman who presented with multiple complex medical issues, we will monitor the patient closely, continue the current medications, management and symptomatic treatment. I would recommend cautious diuresis and otherwise I would also recommend Cardiology and Pulmonology consultation. CT scan of the chest will be ordered. Resume the home medications. I will continue current medications. Obtain cardiology opinion regarding the continuation of the amiodarone. Otherwise, overall prognosis guarded because of multiple complex medical issues. Further recommendations to follow. There is no previous chest x-ray to compare and I would also obtain basic labs including D-dimer also and I would also recommend Covid 19 PCR as well. Copy of this dictation is being forwarded to Dr. Ryann Grullon who is the primary physician. MMODL / IJN: [id number] / ANTIONETTE
[2020-05-21] MEDS ORDERED: IPRATROPIUM-ALBUTEROL 3 ML NEB INHALATION PRN (20:18)
[2020-05-21 20:49] LABS: Glucose,Whole Blood 160 mg/dL (75-99)
[2020-05-21] MEDS: ATORVASTATIN 80 MG TAB PO SCH (21:41)
[2020-05-21] MEDS: allopurinoL 300 MG TAB PO SCH (21:41)
[2020-05-21] MEDS: TEMAZEPAM 15 MG CAP PO PRN (21:42)
[2020-05-21] MEDS: atenoloL 50 MG TAB PO SCH (21:42)
[2020-05-21] MEDS: ASPIRIN 81 MG PO SCH (21:42)
[2020-05-22] MEDS ORDERED: CLOPIDOGREL 75 MG TAB PO SCH (00:30)
[2020-05-22 06:11] LABS: Ferritin 164.3 ng/mL (22.0-322.0)
[2020-05-22 06:17] LABS: Glucose,Whole Blood 126 mg/dL (75-99)
[2020-05-22] MEDS: LEVOTHYROXINE 50 MCG TAB PO SCH (06:18)
[2020-05-22] MEDS: PANTOPRAZOLE 40 MG TABLET PO SCH (06:18)
[2020-05-22] MEDS: ALPRAZolam 0.25 MG TAB PO PRN (06:19)
[2020-05-22] MEDS: FUROSEMIDE 40 MG TAB PO SCH ×2 (08:02→14:46)
[2020-05-22] MEDS: FENOFIBRATE 160 MG TAB PO SCH (08:03)
[2020-05-22] MEDS: SODIUM CHLORIDE 0.9% 1,000 ML IV SCH (08:03)
[2020-05-22 08:24] LABS: Basophils % (A) 0 %; Eosinophils # (A) 0.2 k/uL (0-0.7); Eosinophils % (A) 2 %; HGB 10.3 gm/dL (13.0-17.5); Hypochromasia Slight; Lymphocytes # (A) 1.5 k/uL (1.0-4.8); Lymphocytes % (A) 20 %; MCH 29.5 pg (25.0-35.0); MCHC 31.3 g/dL (31.0-37.0); MCV 94.2 fL (80.0-100.0); Mean Platelet Volume 8.5; Monocytes # (A) 0.6 k/uL (0-1.0); Monocytes % (A) 8 %; Neutrophils # (A) 5.3 k/uL (1.3-7.7); Neutrophils % (A) 69 %; Platelet Count 185 k/uL (150-450); RDW 15.2 % (11.5-15.5); WBC 7.7 k/uL (3.8-10.6)
[2020-05-22 08:28] LABS: Calcium 8.9 mg/dL (8.4-10.2); Potassium 3.8 mmol/L (3.5-5.1)
[2020-05-22] MEDS ORDERED: HEPARIN SODIUM,PORCINE 5,000 UNIT/ML 1 ML VIAL IV ONE (09:31)
[2020-05-22] MEDS: HEPARIN SOD,PORK IN 0.45% NACL 25,000 UNIT in 0.45% NACL 1 250ML.BAG IV SCH (10:01)
[2020-05-22 10:18] LABS: Basophils % (A) 0 %; Eosinophils % (A) 3 %; HCT 36.7 % (39.0-53.0); HGB 11.9 gm/dL (13.0-17.5); Hypochromasia Slight; Lymphocytes # (A) 1.9 k/uL (1.0-4.8); Lymphocytes % (A) 20 %; MCH 30.4 pg (25.0-35.0); MCHC 32.4 g/dL (31.0-37.0); MCV 93.8 fL (80.0-100.0); Mean Platelet Volume 8.6; Monocytes % (A) 7 %; Neutrophils # (A) 6.4 k/uL (1.3-7.7); Neutrophils % (A) 68 %; Platelet Count 220 k/uL (150-450); RBC 3.91 m/uL (4.30-5.90); RDW 15.1 % (11.5-15.5); WBC 9.3 k/uL (3.8-10.6)
[2020-05-22 10:19] LABS: Eosinophils # (A) 0.2 k/uL (0-0.7); Monocytes # (A) 0.7 k/uL (0-1.0)
[2020-05-22 10:28] LABS: Partial Thromboplastin Time 23.7 sec (22.0-30.0); Prothrombin Time 10.5 sec (9.0-12.0)
[2020-05-22] MEDS: FERROUS SULFATE 325 MG TAB PO SCH ×2 (11:32→20:33)
[2020-05-22] MEDS: metFORMIN 500 MG TAB PO SCH ×2 (11:32→20:32)
[2020-05-22] MEDS: AMIODARONE 200 MG TAB PO SCH ×2 (11:32→20:31)
[2020-05-22] MEDS: CHOLECALCIFEROL 25 MCG (1000 IU) TABLET PO SCH (11:33)
[2020-05-22] MEDS: SUCRALFATE 1 GM TAB PO SCH ×2 (11:33→20:32)
[2020-05-22 12:35] LABS: Glucose,Whole Blood 127 mg/dL (75-99)
[2020-05-22] MEDS ORDERED: MAGNESIUM SULFATE-D5W PMX 1 GM in DEXTROSE/WATER 1 100ML.BAG IVPB ONE (12:53)
[2020-05-22] MEDS ORDERED: POTASSIUM CHLORIDE ER 20 MEQ TAB.ER PO STA (12:53)
--- NOTE | 2020-05-22 12:53 | P.CNPUL ---
History of Present Illness Consult date: 05/22/20 Reason for consult: dyspnea History of present illness: 74-year-old male patient was hospitalized for dizziness and cardiac complications. The patient is known to have CHF and the patient has an AICD in place in addition to previous history of diabetes and hypertension. 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 He denies having any fever. No chills. No nausea. No vomiting. No abdominal pain. No chest pain. Latest cardiac catheterization was from 2018 and the patient has stable CAD with a patent CHATTERJEE to LAD. Note that the patient has cardiomyopathy and he has previous history of coronary artery disease with previous bypass surgery. He has had previous episodes of ventricular fibrillation for that reason he was given an AICD. His current labs show white cell count of 9.3 with a hemoglobin of 11.9. His correlation profile was normal, BUN was 28 with a creatinine of 1.34 and his sodium level of 139 and a potassium level of 53.8. Calcium was 8.9, magnesium was 1.5, AST and ALT were 47 and 40 respectively and his LDH was 422 and a troponin was negative. His proBNP level was 5090. UA was negative. Coronavirus/covid 19 testing was also negative. His taken amiodarone 200 mg twice a day. This CTA of the chest was also done that showed some increased interstitial prominence probably related to CHF. No indication of pulmonary fi brosis. No indication of pulmonary embolism. No airspace disease or consolidations. Review of Systems Constitutional: Denies chills, Denies fever Eyes: denies as per HPI, denies blurred vision, denies bulging eye, denies decreased vision, denies diplopia, denies discharge, denies dry eye, denies irritation, denies itching, denies pain, denies photophobia, denies loss of peripheral vision, denies loss of vision, denies tunnel vision/blind spots Ears: deny: decreased hearing, ear discharge, earache, tinnitus Ears, nose, mouth and throat: Denies headache, Denies sore throat Breasts: absent: as per HPI, gynecomastia Cardiovascular: Reports decreased exercise tolerance, Reports dyspnea on exertion, Reports shortness of breath Respiratory: Reports dyspnea Gastrointestinal: Reports as per HPI Genitourinary: Reports as per HPI Musculoskeletal: Reports as per HPI Musculoskeletal: absent: ankle pain, ankle stiffness, ankle swelling Integumentary: Reports as per HPI Neurological: Reports as per HPI, Reports gait dysfunction Endocrine: Reports as per HPI Hematologic/Lymphatic: Reports as per HPI Allergic/Immunologic: Reports as per HPI Past Medical History Past Medical History: Coronary Artery Disease (CAD), Cancer, Chest Pain / Angina , Heart Failure, Diabetes Mellitus, Eye Disorder, GERD/Reflux, GI Bleed, Hyperlipidemia, Hypertension, Myocardial Infarction (PA), Pneumonia, Sleep Apnea/CPAP/BIPAP, Syncope, Thyroid Disorder, Vascular Disorder Additional Past Medical History / Comment(s): NIDDM type II, car diomyopathy/VF/VTach with AICD, lower GI bleed/black stools, anemia, gastritis, syncope when AICD fires, BLUE-does not use his cpap, hypothyroid, skin cancer with removals. Last Myocardial Infarction Date:: 1989 History of Any Multi-Drug Resistant Organisms: None Reported Past Surgical History: AICD, Coronary Bypass/CABG, Heart Catheterization, Orthopedic Surgery Additional Past Surgical History / Comment(s): 2007 AICD implant with gen change 2015, 4 vessel CABG in 1991, R caratid endartectomy, AAA endograft/stent, L elbow bursa removed, EGD, colonoscopies, skin cancer removals, bilateral catar act removals. Past Anesthesia/Blood Transfusion Reactions: No Reported Reaction Type of Cardiac Device: AICD Device Placement Date:: 2007 implant and gen change in 2015 Smoking Status: Current every day smoker - Past Family History Father Family Medical History: Myocardial Infarction (PA) Additional Family Medical History / Comment(s): AT 60 WITH PA Brother(s) Family Medical History: Coronary Artery Disease (CAD) Additional Family Medical History / Comment(s): CABG-TWIN BROTHER Mother Family Medical History: Cancer Additional Family Medical History / Comment(s): MULTIPLE MYELOMA Medications and Allergies Home Medications Medication Instructions Recorded Confirmed Type Aspirin 81 mg PO DAILY@2903/30/15 05/21/20 History Clopidogrel [Plavix] 75 mg PO DAILY@2903/30/15 05/21/20 History Vitamin D Liquid Supplement 1 drop PO PC-LUNCH 03/30/15 05/21/20 History atenoloL [Tenormin] 50 mg PO DAILY@0030 03/30/15 05/21/20 History lisinopriL [Zestril] 2.5 mg PO DAILY@0030 03/30/15 05/21/20 History Atorvastatin Calcium [Lipitor] 80 mg PO DAILY@0030 11/30/17 05/21/20 History Ferrous Sulfate [Iron (65 MG 325 mg PO BID@0030,1230 11/30/17 05/21/20 History Elemental)] Gemfibrozil [Lopid] 600 mg PO BID@0030,1230 11/30/17 05/21/20 History Levothyroxine Sodium [Synthroid] 50 mcg PO AC-BRKFST 11/30/17 05/21/20 History Sucralfate [Carafate] 1 gm PO BID@0030,12311/30/17 05/21/20 History allopurinoL [Zyloprim] 300 mg PO DAILY@0030 11/30/17 05/21/20 History Nitroglycerin Sl Tabs [Nitrostat] 0.4 mg SUBLINGUAL Q5M PRN tab 02/04/18 05/21/20 Rx Amiodarone HCl [Pacerone] See Taper PO Q12H 05/21/20 05/21/20 History metFORMIN HCL [Glucophage] 500 mg PO BID@0030,12305/21/20 05/21/20 History Allergies Allergy/AdvReac Type Severity Reaction Status Date / Time No Known Allergies Allergy Verified 05/21/20 09:40 Physical Exam Vitals: Vital Signs Temp Pulse Pulse Resp BP BP BP 05/22/20 11:29 97.8 F 74 18 99/55 05/22/20 08:00 97.7 F 62 18 116/60 05/22/20 04:00 98.3 F 73 18 96/56 05/22/20 00:00 98.3 F 77 18 99/62 05/21/20 20:59 80 05/21/20 20:49 76 05/21/20 20:00 97.6 F 78 24 118/68 05/21/20 15:30 97.7 F 73 18 134/79 05/21/20 14:15 76 18 131/86 Pulse Ox 05/22/20 11:29 92 L 05/22/20 08:00 100 05/22/20 04:00 95 03/06/21 00:00 97 05/21/20 20:59 05/21/20 20:49 05/21/20 20:00 98 05/21/20 15:30 99 05/21/20 14:15 98 Intake and Output 05/21/20 05/22/20 05/22/20 22:59 06:59 14:59 Intake Total 480 475 Balance 480 475 Intake: Oral 480 475 Other: Voiding Method Toilet Toilet Toilet # Voids 2 Weight 95.254 kg 98.8 kg The patient appeared well nourished and normally developed. Vital signs as documented. Head exam is unremarkable. No scleral icterus or corneal arcus noted. Neck is without jugular venous distension, thyromegaly, or carotid bruits. Carotid upstrokes are brisk bilaterally. Lungs are clear to auscultation and percussion. Cardiac exam reveals the PMI to be normally sized and situated. Rhythm is regular. First and second heart sounds normal. No murmurs, rubs or gallops.the patient has an AICD pocket over the left anterior chest area. Abdominal exam reveals normal bowel sounds, no masses, no organomegaly and no aortic enlargement. Extremities are nonedematous and both femoral and pedal pulses are normal.Examination of the skin revealed no evidence of significant rashes, suspicious appearing nevi or other concerning lesions.Neurologically, the patient is awake and alert and the patient does not have any focal neurological deficit. Cranial nerves are essentially intact. Results - Laboratory Findings CBC and BMP: 05/22/20 10:01 05/22/20 07:25 PT/INR, D-dimer PT 10.5 sec (9.0-12.0) 05/22/20 10:01 INR 1.0 (<1.2) 05/22/20 10:01 D-Dimer 1.44 mg/L FEU (<0.60) H 05/21/20 18:21 Abnormal lab findings: Abnormal Labs 05/21/20 05/21/20 05/21/20 07:50 07:50 07:50 RBC 3.87 L Hgb 11.6 L Hct 35.8 L ESR D-Dimer Carbon Dioxide BUN 26 H Creatinine 1.43 H Glucose 150 H POC Glucose (mg/dL) Plasma Lactic Acid Guy 2.1 H* Magnesium 1.5 L Alkaline Phosphatase 203 H Creatine Kinase 43 L C-Reactive Protein Urine Protein 05/21/20 05/21/20 05/21/20 08:12 16:44 18:21 RBC Hgb Hct ESR 24 H D-Dimer Carbon Dioxide BUN Creatinine Glucose POC Glucose (mg/dL) 140 H Plasma Lactic Acid Guy Magnesium Alkaline Phosphatase Creatine Kinase C-Reactive Protein Urine Protein Trace H 05/21/20 05/21/20 05/21/20 18:21 18:21 20:42 RBC Hgb Hct ESR D-Dimer 1.44 H Carbon Dioxide BUN Creatinine Glucose POC Glucose (mg/dL) 160 H Plasma Lactic Acid Guy Magnesium Alkaline Phosphatase Creatine Kinase C-Reactive Protein 13.5 H Urine Protein 05/22/20 05/22/20 05/22/20 06:04 07:25 07:25 RBC 3.50 L Hgb 10.3 L Hct 33.0 L ESR D-Dimer Carbon Dioxide 31 H BUN 28 H Creatinine 1.34 H Glucose 116 H POC Glucose (mg/dL) 126 H Plasma Lactic Acid Guy Magnesium Alkaline Phosphatase Creatine Kinase C-Reactive Protein Urine Protein 05/22/20 05/22/20 10:01 12:15 RBC 3.91 L Hgb 11.9 L Hct 36.7 L ESR D-Dimer Carbon Dioxide BUN Creatinine Glucose POC Glucose (mg/dL) 127 H Plasma Lactic Acid Guy Magnesium Alkaline Phosphatase Creatine Kinase C-Reactive Protein Urine Protein - Diagnostic Findings Chest x-ray: image reviewed CT scan - chest: image reviewed Assessment and Plan Plan: 1 abnormal computed tomography scan of the chest was consistent with CHF. Very unlikely to be related to interstitial lung disease or drug induced ILD specially the amiodarone was started approximately 3 days ago at the lower dose. The logical thinking is that the increased interstitial markings on the CAT scan of the chest is attributed to CHF and the patient has exertional dyspnea and orthopnea and elevated proBNP level. He is known to have chronic cardiomyop athy 2 CHF and known history of ischemic cardiomyopathy with impaired LV function 3 coronary artery disease with previous bypass surgery and malaise cardiac catheterizations from January 2018 and the CHATTERJEE to LAD was patent 4 previous history of ventricular fibrillation requiring an AICD placement. The patient had a recent firing of his AICD and the patient was started on amiodarone by his armor reconnaissance vehicle driver approximately 3 days ago. He is also on beta blockers. Magnesium level was slightly low at 1.5 with a potassium level of 3.8 both need to be replaced 5 chronic kidney disease stage II with a creatinine of 1.3 and a GFR of 52 6 hypertension 7 hypothyroidism 8 history of obstructive sleep apnea. 9 history of carotid artery disease on the right with a previous endarterectomy 10 diabetes mellitus type 2 11 history of skin cancer 12 history of smoking plan the patient is hemodynamically stable and he is already feeling better. As stated, likely would've a amiodarone and since induced ILD is quite low on this patient especially that the medication was started approximately a week ago and his presentation was more consistent with CHF. I will suggest continuing the amiodarone as long as the dosing is less than 400 mg on a daily basis. cardiac rhythm. Replace potassium. Replace magnesium. Diuretics with Lasix 40 mg by mouth every 8 hours. Monitor fluid balance.consider the possibility of cardiac catheterization in view of these new onset ventricular arrhythmias. The patient is on atenolol 50 mg by mouth daily. He is also on IV heparin for now. The rest of the cardiac medications of been resumed.
--- NOTE | 2020-05-22 13:04 | XR ---
EXAMINATION TYPE: XR chest 1V portable DATE OF EXAM: 05/22/2020 COMPARISON: Chest x-ray 05/21/2020 HISTORY: Congestive heart failure TECHNIQUE: Single frontal view of the chest is obtained. FINDINGS: Prominence of the interstitium, bilateral airspace disease has potentially progressive oth er differences in technique, heart is enlarged. There is no evident pneumothorax or sizable effusion. Patient is post median sternotomy. Defibrillator lead is stable, patient is post median sternotomy. IMPRESSION: Findings consistent with congestive heart failure that may have worsened in the interval . There are differences in technique.
--- NOTE | 2020-05-22 16:16 | P.CRDCN ---
<Erica Garrett - Last Filed: 05/22/20 16:04> History of Present Illness Consult date: 05/22/20 History of present illness: HISTORY OF PRESENT ILLNESS: This is a 74-year-old male with a past medical history significant for coronary artery disease with previous CABG, cardiomyopathy, AICD implantation, hypertension,and hyperlipidemia. Patient follows in the office with Dr. Ayoub. We have been asked to see the patient in consultation for congestive heart failure. Patient examined at the bedside. Patient states that AICD went off last weekend. He was seen in the office and was started on amiodarone. Patient reports over the past few days he has been feeling short of breath and lightheaded. He denied any chest pain or pressure. He denied feeling any palpitations. He reports some increased lower extremity edema. Patient is a current smoker and reports smoking 1-1/2 packs per day. EKG reveals atrial fibrillation with controlled ventricular rate. Left axis deviation. Left bundle branch block Chest xray prominent pulmonary vasculature with diffuse increased lung markings. Correlate for volume overload. Laboratory data: WBC 9.3. Hemoglobin 11.9. Platelet count 220. D-dimer 1.44. Sodium 139. Potassium 3.8. BUN 28. Creatinine 1.34. Troponin negative 1. BNP 5090. Current home cardiac medications include aspirin 81 mg daily, amiodarone 200 mg twice a day, Lopid 600 mg twice a day, lisinopril 2.5 mg daily, atenolol 50 mg daily, Plavix 75 mg daily, Lipitor 80 mg daily Cardiac catheterization history: January 2018 revealing stable coronary artery disease with patent CHATTERJEE graft to the LAD. Medical management was recommended REVIEW OF SYSTEMS: At the time of my exam: CONSTITUTIONAL: Denies fever or chills. HEENT: Denies blurred vision, vision changes, or eye pain. Denies hemoptysis CARDIOVASCULAR: Denies chest pain. Denies orthopnea. Denies PND. Denies palpitations RESPIRATORY: Denies shortness of breath. GASTROINTESTINAL: Denies abdominal pain. Denies nausea or vomiting. HEMATOLOGIC: Denies bleeding disorders. GENITOURINARY: Denies any blood in urine. SKIN: Denies pruitis. Denies rash. PHYSICAL EXAM: VITAL SIGNS: Reviewed. GENERAL: Well-developed in no acute distress. HEENT: Head is normocephalic. Pupils are equal, round. Sclerae anicteric. Mucous membranes of the mouth are moist. Neck supple. No JVD or thyromegaly LUNGS: Respirations even and unlabored. Lungs diminished bilaterally. HEART: Irregular rate and rhythm. S1 and S2 heard. ABDOMEN: Soft. Nondistended. Nontender. EXTREMITIES: Normal range of motion. No clubbing or cyanosis. Peripheral pul ses intact. Trace lower extremity edema NEUROLOGIC: Awake and alert. Oriented x 3. ASSESSMENT: Acute exacerbation of systolic heart failure, BNP 5090 New-onset atrial fibrillation with controlled ventricular rate Ischemic cardiomyopathy with previous AICD implantation History of ventricular tachycardia with recent AICD firing, originally started on amiodarone outpatient Coronary artery disease with previous CABG, 1991 Hypertension Hyperlipidemia Diabetes mellitus Nicotine dependence, patient smokes 1.5 packs per day Hypokalemia Hypomagnesemia PLAN: Begin IV heparin Continue aspirin. Discontinue Plavix Continue current dose of amiodarone Resume additional cardiac medications Prescription sent to pharmacy for Eliquis 5 mg twice a day. Case management consulted for prescription coverage of Eliquis. If covered, will discontinue IV heparin and begin Eliquis Continue Lasix 40 mg IV every 8 hours Monitor kidney function Daily weights Accurate I&O's Replace electrolytes. Recheck in a.m. Check TSH Obtain 2-D echo to assess cardiac structure and function Further recommendations pending patient's course Nurse practitioner note has been reviewed by physician. Signing provider agrees with the documented findings, assessment, and plan of care. Past Medical History Past Medical History: Coronary Artery Disease (CAD), Cancer, Chest Pain / Angina, Heart Failure, Diabetes Mellitus, Eye Disorder, GERD/Reflux, GI Bleed, Hyperlipidemia, Hypertension, Myocardial Infarction ([place]), Pneumonia, Sleep Apnea/CPAP/BIPAP, Syncope, Thyroid Disorder, Vascular Disorder Additional Past Medical History / Comment(s): NIDDM type II, cardiomyopathy/VF/VTach with AICD, lower GI bleed/black stools, anemia, gastritis, syncope when AICD fires, BLUE-does not use his cpap, hypothyroid, skin cancer with removals. Last Myocardial Infarction Date:: 1989 History of Any Multi-Drug Resistant Organisms: None Reported Past Surgical History: AICD, Coronary Bypass/CABG, Heart Catheterization, Orthopedic Surgery Additional Past Surgical History / Comment(s): 2008 AICD implant with gen change 2016, 4 vessel CABG in 1991, R caratid endartectomy, AAA endograft/stent, L elbow bursa removed, EGD, colonoscopies, skin cancer removals, bilateral cataract removals. Past Anesthesia/Blood Transfusion Reactions: No Reported Reaction Type of Cardiac Device: AICD Device Placement Date:: 2007 implant and gen change in 2015 Smoking Status: Current every day smoker - Past Family History Father Family Medical History: Myocardial Infarction ([place]) Additional Family Medical History / Comment(s): AT 60 WITH [place] Brother(s) Family Medical History: Coronary Artery Disease (CAD) Additional Family Medical History / Comment(s): CABG-TWIN BROTHER Mother Family Medical History: Cancer Additional Family Medical History / Comment(s): MULTIPLE MYELOMA Medications and Allergies Home Medications Medication Instructions Recorded Confirmed Type Aspirin 81 mg PO DAILY@2903/30/15 05/21/20 History Clopidogrel [Plavix] 75 mg PO DAILY@2903/30/15 05/21/20 History Vitamin D Liquid Supplement 1 drop PO PC-LUNCH 03/30/15 05/21/20 History atenoloL [Tenormin] 50 mg PO DAILY@2903/30/15 05/21/20 History lisinopriL [Zestril] 2.5 mg PO DAILY@2903/30/15 05/21/20 History Atorvastatin Calcium [Lipitor] 80 mg PO DAILY@2911/30/17 05/21/20 History Ferrous Sulfate [Iron (65 MG 325 mg PO BID@29,122911/30/17 05/21/20 History Elemental)] Gemfibrozil [Lopid] 600 mg PO BID@29,122911/30/17 05/21/20 History Levothyroxine Sodium [Synthroid] 50 mcg PO AC-BRKFST 11/30/17 05/21/20 History Sucralfate [Carafate] 1 gm PO BID@29,122911/30/17 05/21/20 History allopurinoL [Zyloprim] 300 mg PO DAILY@2911/30/17 05/21/20 History Nitroglycerin Sl Tabs [Nitrostat] 0.4 mg SUBLINGUAL Q5M PRN tab 02/04/18 05/21/20 Rx Amiodarone HCl [Pacerone] See Taper PO Q12H 05/21/20 05/21/20 History metFORMIN HCL [Glucophage] 500 mg PO BID@0030,1230 05/21/20 05/21/20 History Apixaban [Eliquis] 5 mg PO BID #60 tab 05/22/20 Rx Allergies Allergy/AdvReac Type Severity Reaction Status Date / Time No Known Allergies Allergy Verified 05/21/20 09:40 Physical Exam Vitals: Vital Signs Temp Pulse Pulse Resp BP Pulse Ox 05/22/20 15:20 98.3 F 83 18 122/64 99 05/22/20 13:28 18 05/22/20 11:29 97.8 F 74 18 99/55 92 L 05/22/20 08:00 97.7 F 62 18 116/60 100 05/22/20 04:00 98.3 F 73 18 96/56 95 05/22/20 00:00 98.3 F 77 18 99/62 97 05/21/20 20:59 80 05/21/20 20:49 76 05/21/20 20:00 97.6 F 78 24 118/68 98 Intake and Output 05/22/20 05/22/20 05/22/20 06:59 14:59 22:59 Intake Total 475 40 Balance 475 40 Intake: IV 40 Heparin Sod,Pork in 0.45% 40 NaCl 25,000 unit In 0.45 % NaCl 1 250ml.bag @ 10 UNITS/KG/HR 9.88 mls/hr IV .Q24H [facility] Rx#: [id number] Oral 475 Other: Voiding Method Toilet Toilet # Voids 2 Weight 98.8 kg Results 05/22/20 10:01 05/22/20 07:25 Cardiac Enzymes 05/21/20 Range/Units 18:21 Lactate Dehydrogenase 422 (313-618) U/L Coagulation 05/22/20 Range/Units 10:01 PT 10.5 (9.0-12.0) sec APTT 23.7 (22.0-30.0) sec CBC 05/22/20 05/22/20 Range/Units 07:25 10:01 WBC 7.7 9.3 (3.8-10.6) k/uL RBC 3.50 L 3.91 L (4.30-5.90) m/uL Hgb 10.3 L 11.9 L (13.0-17.5) gm/dL Hct 33.0 L 36.7 L (39.0-53.0) % Plt Count 185 220 (150-450) k/uL Comprehensive Metabolic Panel 05/22/20 Range/Units 07:25 Sodium 139 (137-145) mmol/L Potassium 3.8 (3.5-5.1) mmol/L Chloride 101 (98-107) mmol/L Carbon Dioxide 31 H (22-30) mmol/L BUN 28 H (9-20) mg/dL Creatinine 1.34 H (0.66-1.25) mg/dL Glucose 116 H (74-99) mg/dL Calcium 8.9 (8.4-10.2) mg/dL Current Medications Generic Name Dose Route Start Last Admin Trade Name Freq PRN Reason Stop Dose Admin Hydrocodone Bitart/Acetaminophen 1 each 05/21/20 17:50 Hydrocodone/Apap 5-325mg 1 Each Tab PO Q6HR PRN Pain Albuterol/Ipratropium 3 ml 05/21/20 20:18 05/21/20 20:49 Ipratropium-Albuterol 3 Ml Neb INHALATION 3 ml RT-QID PRN Administration Shortness Of Breath Or Wheezing Allopurinol 300 mg 05/22/20 00:30 05/21/20 21:41 Allopurinol 300 Mg Tab PO 300 mg DAILY@0030 [facility] Administration Alprazolam 0.25 mg 05/21/20 17:50 05/22/20 06:19 Alprazolam 0.25 Mg Tab PO 0.25 mg TID PRN Administration Anxiety Amiodarone HCl 200 mg 05/21/20 12:30 05/22/20 11:32 Amiodarone 200 Mg Tab PO 200 mg Q12H [facility] Administration Aspirin 81 mg 05/22/20 00:30 05/21/20 21:42 Aspirin 81 Mg PO 81 mg DAILY@0030 [facility] Administration Atenolol 50 mg 05/22/20 00:30 05/21/20 21:42 Atenolol 50 Mg Tab PO 50 mg DAILY@0030 [facility] Administration Atorvastatin Calcium 80 mg 05/22/20 00:30 05/21/20 21:41 Atorvastatin 80 Mg Tab PO 80 mg DAILY@0030 [facility] Administration Cholecalciferol 25 mcg 05/21/20 13:30 05/22/20 11:33 Cholecalciferol 25 Mcg (1000 Iu) Tablet PO 25 mcg PC-LUNCH [facility] Administration Fenofibrate 160 mg 05/22/20 09:00 05/22/20 08:03 Fenofibrate 160 Mg Tab PO 160 mg DAILY [facility] Administration Ferrous Sulfate 325 mg 05/21/20 12:30 05/22/20 11:32 Ferrous Sulfate 325 Mg Tab PO 325 mg BID@29,123 [facility] Administration Furosemide 40 mg 05/22/20 21:00 Furosemide 10 Mg/Ml 4 Ml Vial IV Q12HR [facility] Heparin Sodium (Porcine) 0 unit 05/22/20 09:31 Heparin Sodium,Porcine 5,000 Unit/Ml 1 Ml Vial IV PER PROTOCOL PRN Low PTT Protocol Sodium Chloride 1,000 mls @ 20 mls/hr 05/21/20 11:00 05/22/20 08:03 Saline 0.9% IV Not Given .Q24H [facility] Heparin Sodium/Sodium Chloride 250 mls @ 9.88 mls/hr 05/22/20 09:45 05/22/20 10:01 25,000 unit/ Sodium Chloride IV 10 units/kg/hr .Q24H [facility] 9.88 mls/hr Administration Protocol 10 UNITS/KG/HR Levothyroxine Sodium 50 mcg 05/22/20 06:30 05/22/20 06:18 Levothyroxine 50 Mcg Tab PO 50 mcg 0630 [facility] Administration Lisinopril 2.5 mg 05/22/20 00:30 05/21/20 21:42 Lisinopril 2.5 Mg Tab PO 2.5 mg DAILY@0030 [facility] Administration Metformin HCl 500 mg 05/21/20 12:30 05/22/20 11:32 Metformin 500 Mg Tab PO 500 mg BID@29,123 [facility] Administration Nitroglycerin 0.4 mg 05/21/20 10:54 Nitroglycerin Sl Tabs 0.4 Mg Tab SUBLINGUAL Q5M PRN Chest Pain Pantoprazole Sodium 40 mg 05/22/20 07:30 05/22/20 06:18 Pantoprazole 40 Mg Tablet PO 40 mg AC-BRKFST [facility] Administration Sucralfate 1 gm 05/21/20 12:30 05/22/20 11:33 Sucralfate 1 Gm Tab PO 1 gm BID@0030,1230 [facility] Administration Temazepam 15 mg 05/21/20 17:50 05/21/20 21:42 Temazepam 15 Mg Cap PO 15 mg HS PRN Administration Insomnia Intake and Output 05/22/20 05/22/20 05/22/20 06:59 14:59 22:59 Intake Total 475 40 Balance 475 40 Intake: IV 40 Heparin Sod,Pork in 0.45% 40 NaCl 25,000 unit In 0.45 % NaCl 1 250ml.bag @ 10 UNITS/KG/HR 9.88 mls/hr IV .Q24H [facility] Rx#: [id number] Oral 475 Other: Voiding Method Toilet Toilet # Voids 2 Weight 98.8 kg 05/22/20 10:01 05/22/20 07:25 <Rosalio Lebron - Last Filed: 05/22/20 19:36> Physical Exam Vitals: Vital Signs Temp Pulse Pulse Resp BP Pulse Ox 05/22/20 15:20 98.3 F 83 18 122/64 99 05/22/20 13:28 18 05/22/20 11:29 97.8 F 74 18 99/55 92 L 05/22/20 08:00 97.7 F 62 18 116/60 100 05/22/20 04:00 98.3 F 73 18 96/56 95 05/22/20 00:00 98.3 F 77 18 99/62 97 05/21/20 20:59 80 05/21/20 20:49 76 05/21/20 20:00 97.6 F 78 24 118/68 98 Intake and Output 05/22/20 05/22/20 05/22/20 06:59 14:59 22:59 Intake Total 475 40 64.879 Balance 475 40 64.879 Intake: IV 40 Heparin Sod,Pork in 0.45% 40 NaCl 25,000 unit In 0.45 % NaCl 1 250ml.bag @ 10 UNITS/KG/HR 9.88 mls/hr IV .Q24H [facility] Rx#: [id number] Intake, IV Titration 64.879 Amount Heparin Sod,Pork in 0.45% 64.879 NaCl 25,000 unit In 0.45 % NaCl 1 250ml.bag @ 10 UNITS/KG/HR 9.88 mls/hr IV .Q24H [facility] Rx#: [id number] Oral 475 Other: Voiding Method Toilet Toilet # Voids 2 Weight 98.8 kg 99 kg Results 05/22/20 10:01 05/22/20 07:25 Coagulation 05/22/20 05/22/20 Range/Units 10:01 15:31 PT 10.5 (9.0-12.0) sec APTT 23.7 30.0 (22.0-30.0) sec CBC 05/22/20 05/22/20 Range/Units 07:25 10:01 WBC 7.7 9.3 (3.8-10.6) k/uL RBC 3.50 L 3.91 L (4.30-5.90) m/uL Hgb 10.3 L 11.9 L (13.0-17.5) gm/dL Hct 33.0 L 36.7 L (39.0-53.0) % Plt Count 185 220 (150-450) k/uL Comprehensive Metabolic Panel 05/22/20 Range/Units 07:25 Sodium 139 (137-145) mmol/L Potassium 3.8 (3.5-5.1) mmol/L Chloride 101 (98-107) mmol/L Carbon Dioxide 31 H (22-30) mmol/L BUN 28 H (9-20) mg/dL Creatinine 1.34 H (0.66-1.25) mg/dL Glucose 116 H (74-99) mg/dL Calcium 8.9 (8.4-10.2) mg/dL Current Medications Generic Name Dose Route Start Last Admin Trade Name Freq PRN Reason Stop Dose Admin Hydrocodone Bitart/Acetaminophen 1 each 05/21/20 17:50 Hydrocodone/Apap 5-325mg 1 Each Tab PO Q6HR PRN Pain Albuterol/Ipratropium 3 ml 05/21/20 20:18 05/21/20 20:49 Ipratropium-Albuterol 3 Ml Neb INHALATION 3 ml RT-QID PRN Administration Shortness Of Breath Or Wheezing Allopurinol 300 mg 05/22/20 00:30 05/21/20 21:41 Allopurinol 300 Mg Tab PO 300 mg DAILY@0030 [facility] Administration Alprazolam 0.25 mg 05/21/20 17:50 05/22/20 06:19 Alprazolam 0.25 Mg Tab PO 0.25 mg TID PRN Administration Anxiety Amiodarone HCl 200 mg 05/21/20 12:30 05/22/20 11:32 Amiodarone 200 Mg Tab PO 200 mg Q12H [facility] Administration Aspirin 81 mg 05/22/20 00:30 05/21/20 21:42 Aspirin 81 Mg PO 81 mg DAILY@0030 [facility] Administration Atenolol 50 mg 05/22/20 00:30 05/21/20 21:42 Atenolol 50 Mg Tab PO 50 mg DAILY@0030 [facility] Administration Atorvastatin Calcium 80 mg 05/22/20 00:30 05/21/20 21:41 Atorvastatin 80 Mg Tab PO 80 mg DAILY@0030 [facility] Administration Cholecalciferol 25 mcg 05/21/20 13:30 05/22/20 11:33 Cholecalciferol 25 Mcg (1000 Iu) Tablet PO 25 mcg PC-LUNCH [facility] Administration Fenofibrate 160 mg 05/22/20 09:00 05/22/20 08:03 Fenofibrate 160 Mg Tab PO 160 mg DAILY [facility] Administration Ferrous Sulfate 325 mg 05/21/20 12:30 05/22/20 11:32 Ferrous Sulfate 325 Mg Tab PO 325 mg BID@0030,1230 [facility] Administration Furosemide 40 mg 05/22/20 21:00 Furosemide 10 Mg/Ml 4 Ml Vial IV Q12HR [facility] Heparin Sodium (Porcine) 0 unit 05/22/20 09:31 05/22/20 16:35 Heparin Sodium,Porcine 5,000 Unit/Ml 1 Ml Vial IV 4,000 unit PER PROTOCOL PRN Administration Low PTT Protocol Sodium Chloride 1,000 mls @ 20 mls/hr 05/21/20 11:00 05/22/20 08:03 Saline 0.9% IV Not Given .Q24H [facility] Heparin Sodium/Sodium Chloride 250 mls @ 9.88 mls/hr 05/22/20 09:45 05/22/20 16:35 25,000 unit/ Sodium Chloride IV 13 units/kg/hr .Q24H [facility] 12.844 mls/hr Titration Protocol 10 UNITS/KG/HR Levothyroxine Sodium 50 mcg 05/22/20 06:30 05/22/20 06:18 Levothyroxine 50 Mcg Tab PO 50 mcg 0630 [facility] Administration Lisinopril 2.5 mg 05/22/20 00:30 05/21/20 21:42 Lisinopril 2.5 Mg Tab PO 2.5 mg DAILY@0030 [facility] Administration Metformin HCl 500 mg 05/21/20 12:30 05/22/20 11:32 Metformin 500 Mg Tab PO 500 mg BID@0030,1230 [facility] Administration Nitroglycerin 0.4 mg 05/21/20 10:54 Nitroglycerin Sl Tabs 0.4 Mg Tab SUBLINGUAL Q5M PRN Chest Pain Pantoprazole Sodium 40 mg 05/22/20 07:30 05/22/20 06:18 Pantoprazole 40 Mg Tablet PO 40 mg AC-BRKFST [facility] Administration Sucralfate 1 gm 05/21/20 12:30 05/22/20 11:33 Sucralfate 1 Gm Tab PO 1 gm BID@0030,1230 [facility] Administration Temazepam 15 mg 05/21/20 17:50 05/21/20 21:42 Temazepam 15 Mg Cap PO 15 mg HS PRN Administration Insomnia Intake and Output 05/22/20 05/22/20 05/22/20 06:59 14:59 22:59 Intake Total 475 40 64.879 Balance 475 40 64.879 Intake: IV 40 Heparin Sod,Pork in 0.45% 40 NaCl 25,000 unit In 0.45 % NaCl 1 250ml.bag @ 10 UNITS/KG/HR 9.88 mls/hr IV .Q24H [facility] Rx#: [id number] Intake, IV Titration 64.879 Amount Heparin Sod,Pork in 0.45% 64.879 NaCl 25,000 unit In 0.45 % NaCl 1 250ml.bag @ 10 UNITS/KG/HR 9.88 mls/hr IV .Q24H [facility] Rx#: [id number] Oral 475 Other: Voiding Method Toilet Toilet # Voids 2 Weight 98.8 kg 99 kg Patient Weight 05/23/20 06:59 Weight 99 kg 05/22/20 10:01 05/22/20 07:25
[2020-05-22] MEDS: HEPARIN SODIUM,PORCINE 5,000 UNIT/ML 1 ML VIAL IV PRN (16:35)
[2020-05-22 17:24] LABS: Glucose,Whole Blood 126 mg/dL (75-99)
--- NOTE | 2020-05-22 17:56 | ECHOF ---
Referral Reason:chf MEASUREMENTS -------- HEIGHT: 180.3 cm WEIGHT: 95.3 kg BP: IVSd: 1.1 cm (0.6 - 1.1) LVIDd: 5.8 cm (3.9 - 5.3) LVPWd: 1.1 cm (0.6 - 1.1) IVSs: 1.5 cm LVIDs: 4.9 cm LVPWs: 1.5 cm Ao Diam: 2.8 cm (2.0 - 3.7) AV Cusp: 1.5 cm (1.5 - 2.6) LA Diam: 3.4 cm (2.7 - 3.8) MV EXCURSION: 22.863 mm (> 18.000) MV EF SLOPE: 112 mm/s (70 - 150) EPSS: 3.4 cm RAP: 5.00 mmHg RVSP: 13.19 mmHg FINDINGS -------- Atrial fibrillation. This was a technically difficult study with suboptimal views. The left ventricular size is normal. Left ventricular wall thickness is normal. There is severe g lobal hypokinesis of LV . Overall left ventricular systolic function is moderate-severely impaired with, an EF between 30 - 35 %. Left ventricular fillimg pressure cannot be estimated due to Atrial fibrillation. The RV was not well visualized. The left atrial size is normal. The right atrium was not well visualized. 5.0mg of Lumason was utilized for enhancement of images The aortic valve was not well visualized. The mitral valve is normal. There is trace mitral regurgitation. The tricuspid valve appears structurally normal. Trace tricuspid regurgitation present. Right renzo tricular systolic pressure is normal at < 35 mmHg. There is no pulmonic regurgitation present. The aortic root size is normal. IVC Not well visulized. There is no pericardial effusion. CONCLUSIONS -------- 1. Atrial fibrillation. 2. The left ventricular size is normal. 3. Left ventricular wall thickness is normal. 4. There is severe global hypokinesis of LV . 5. Overall left ventricular systolic function is moderate-severely impaired with, an EF between 30 - 35 %. 6. Left ventricular fillimg pressure cannot be estimated due to Atrial fibrillation. 7. There is trace mitral regurgitation. 8. Trace tricuspid regurgitation present. 9. There is no pericardial effusion. [employer] MANAGEMENT CONSULTANT: Laura Lafleur RDCS
--- NOTE | 2020-05-22 19:43 | PN ---
PROGRESS NOTE I am covering for Dr. Grullon. DATE OF SERVICE: 05/22/2020 This 74-year-old gentleman who was admitted with dizziness and generalized weakness is thought to have CHF acute exacerbation. The patient also had bilateral lower lobe lung lesions. Dr. Acuña has seen the patient and thought to be secondary to CHF rather than restrictive lung disease and drug-induced ILD. The patient is being closely monitored at this time. The BNP is elevated up to 5090. Covid 19 has been negative. Patient also had new onset atrial fibrillation. PAST MEDICAL HISTORY: Reviewed. REVIEW OF SYSTEMS: CARDIOVASCULAR SYSTEM: No angina or palpitations. RESPIRATION: As mentioned earlier. GI: As mentioned earlier. : No dysuria. NERVOUS SYSTEM: No numbness or weakness. CURRENT MEDICATIONS: Reviewed and include: Current medications include: [place]. DuoNeb, Zyloprim, Xanax, Cordarone, aspirin, Tenormin. Other medications are noted. PHYSICAL EXAMINATION: Alert and oriented times three. Pulse 83, blood pressure 126/70 respiration 18, temperature 98.2, pulse ox 98% on room air. HEENT: Conjunctivae normal. NECK: No JVD. CARDIOVASCULAR: S1, S2 muffled. RESPIRATORY: Breath sounds diminished in the bases. A few scattered rhonchi and crackles. ABDOMEN: Soft, nontender. LEGS are no edema. No swelling. NERVOUS SYSTEM: No focal deficits. LAB STUDIES: WBC 9.1, hemoglobin 11.9, creatinine is 1.34. ASSESSMENT: 1. Generalized weakness and tiredness for evaluation, possible congestive heart failure acute exacerbation, ejection fraction unknown. 2. Bilateral lower lung lesions, unlikely to be interstitial lung disease or drug- induced lung disease per Pulmonary. 3. Atrial fibrillation with fast ventricular rate. 4. History of ischemic cardiomyopathy and sustained ventricular tachycardia and AICD shocks previously. 5. Increased creatinine with chronic kidney disease stage 3. 6. Anemia, normocytic anemia of chronic disease. 7. Hypomagnesemia. 8. History of coronary artery disease, coronary artery bypass grafting. 9. Diabetes mellitus type 2. 10.Gastroesophageal reflux disease. 11.History of gastrointestinal bleed. 12.Hypertension. 13.Hyperlipidemia. 14.History of sleep apnea. 15.History of syncope. 16.History of hypothyroidism. 17.History of abdominal aortic aneurysm and endograft and stent. 18.History of nicotine dependence, continued ongoing. 19.Social stressors and grief reaction. RECOMMENDATIONS AND DISCUSSION: This 74-year-old gentleman who presented with multiple complex medical issues, we will monitor the patient closely, continue the current medications, management and symptomatic treatment. Otherwise at this time, we will continue with diuresis. The patient is started on heparin. Pulmonary and Cardiology input appreciated. We will continue the current medications. Continue the heparin. Otherwise, prognosis guarded because of multiple complex medical issues. Further recommendations to follow. MMODL / IJN: [id number] / ANTIONETTE
[2020-05-22] MEDS: allopurinoL 300 MG TAB PO SCH (20:32)
[2020-05-22] MEDS: ASPIRIN 81 MG PO SCH (20:32)
[2020-05-22] MEDS: TEMAZEPAM 15 MG CAP PO PRN (20:32)
[2020-05-22] MEDS: ATORVASTATIN 80 MG TAB PO SCH (20:32)
[2020-05-22] MEDS: FUROSEMIDE 10 MG/ML 4 ML VIAL IV SCH (20:32)
[2020-05-22] MEDS: atenoloL 50 MG TAB PO SCH (20:33)
[2020-05-22 20:48] LABS: Glucose,Whole Blood 163 mg/dL (75-99)
[2020-05-23] MEDS: HEPARIN SODIUM,PORCINE 5,000 UNIT/ML 1 ML VIAL IV PRN (00:50)
[2020-05-23] MEDS: HEPARIN SOD,PORK IN 0.45% NACL 25,000 UNIT in 0.45% NACL 1 250ML.BAG IV SCH (04:36)
[2020-05-23 06:28] LABS: Glucose,Whole Blood 129 mg/dL (75-99)
[2020-05-23] MEDS: PANTOPRAZOLE 40 MG TABLET PO SCH (06:33)
[2020-05-23] MEDS: LEVOTHYROXINE 50 MCG TAB PO SCH (06:33)
[2020-05-23] MEDS: FUROSEMIDE 10 MG/ML 4 ML VIAL IV SCH (08:19)
[2020-05-23] MEDS: FENOFIBRATE 160 MG TAB PO SCH (08:20)
[2020-05-23 08:36] LABS: Basophils % (A) 0 %; Eosinophils # (A) 0.2 k/uL (0-0.7); Eosinophils % (A) 3 %; HCT 37.3 % (39.0-53.0); HGB 11.6 gm/dL (13.0-17.5); Hypochromasia Slight; Lymphocytes % (A) 27 %; MCH 29.2 pg (25.0-35.0); MCHC 31.1 g/dL (31.0-37.0); Mean Platelet Volume 8.7; Monocytes # (A) 0.5 k/uL (0-1.0); Monocytes % (A) 7 %; Neutrophils # (A) 4.5 k/uL (1.3-7.7); Neutrophils % (A) 62 %; Platelet Count 202 k/uL (150-450); RBC 3.97 m/uL (4.30-5.90); RDW 15.2 % (11.5-15.5); WBC 7.3 k/uL (3.8-10.6)
[2020-05-23 08:48] LABS: Calcium 9.3 mg/dL (8.4-10.2); Potassium 4.2 mmol/L (3.5-5.1)
[2020-05-23 09:13] VITALS: TEMP 96.7
--- NOTE | 2020-05-23 10:37 | P.PN ---
Subjective Progress Note Date: 05/23/20 74-year-old male patient was hospitalized for dizziness and cardiac complications. The patient is known to have CHF and the patient has an AICD in place in addition to previous history of diabetes and hypertension. He had his AICD firing approximately a week ago and he saw his strategic intelligence officer and he was s tarted on amiodarone around 3 days ago. He denies having any fever. No chills. No nausea. No vomiting. No abdominal pain. No chest pain. Latest cardiac catheterization was from 2018 and the patient has stable CAD with a patent CHATTERJEE to LAD. Note that the patient has cardiomyopathy and he has previous history of coronary artery disease with previous bypass surgery. He has had previous epis odes of ventricular fibrillation for that reason he was given an AICD. His current labs show white cell count of 9.3 with a hemoglobin of 11.9. His correlation profile was normal, BUN was 28 with a creatinine of 1.34 and his sodium level of 139 and a potassium level of 53.8. Calcium was 8.9, magnesium was 1.5, AST and ALT were 47 and 40 respectively and his LDH was 422 and a troponin was negative. His proBNP level was 5090. UA was negative. Coronavirus/covid 19 testing was also negative. His taken amiodarone 200 mg twice a day. This CTA of the chest was also done that showed some increased interstitial prominence probably related to CHF. No indication of pulmonary fibrosis. No indication of pulmonary embolism. No airspace disease or consolidations. 05/23/2020, the patient remains on IV heparin drip. No ventricular arrhythmias. No AICD activity. The patient remains on amiodarone at a dose of 200 mg by mouth twice a day. The patient's also had runs of atrial fibrillation flutter. He was restarted on his that the blockers any significant atenolol 50 mg by mouth daily. He is also on aspirin and he will be started on long-term anticoagulation with Eliquis. No significant shortness of breath on today's evaluation. He is on room air oxygen with a pulse ox of Objective - Vital Signs Vital signs: Vital Signs Temp 96.7 F L 05/23/20 08:00 Pulse 75 05/23/20 08:00 Resp 18 05/23/20 08:00 BP 120/71 05/23/20 08:00 Pulse Ox 97 03/07/21 08:00 Intake & Output 05/22/20 05/23/20 05/23/20 18:59 06:59 18:59 Intake Total 104.879 636.752 Balance 104.879 636.752 Weight 99 kg Intake: IV 40 Heparin Sod,Pork in 0.45% 40 NaCl 25,000 unit In 0.45 % NaCl 1 250ml.bag @ 10 UNITS/KG/HR 9.88 mls/hr IV .Q24H AARON Rx#: [id number] Intake, IV Titration 64.879 161.752 Amount Heparin Sod,Pork in 0.45% 64.879 161.752 NaCl 25,000 unit In 0.45 % NaCl 1 250ml.bag @ 10 UNITS/KG/HR 9.88 mls/hr IV .Q24H AARON Rx#: [id number] Oral 475 Other: Voiding Method Toilet Toilet Urinal - Exam The patient appeared well nourished and normally developed. Vital signs as documented. Head exam is unremarkable. No scleral icterus or corneal arcus noted. Neck is without jugular venous distension, thyromegaly, or carotid bruits. Carotid upstrokes are brisk bilaterally. Lungs are clear to auscultation and percussion. Cardiac exam reveals the PMI to be normally sized and situated. Rhythm is regular. First and second heart sounds normal. No murmurs, rubs or gallops.the patient has an AICD pocket over the left anterior chest area. Abdominal exam reveals normal bowel sounds, no masses, no organomegaly and no aortic enlargement. Extremities are nonedematous and both femoral and pedal pulses are normal.Examination of the skin revealed no evidence of significant rashes, suspicious appearing nevi or other concerning lesions.Neurologically, the patient is awake and alert and the patient does not have any focal neurological deficit. Cranial nerves are essentially intact. - Labs CBC & Chem 7: 05/23/20 07:53 05/23/20 07:53 Labs: Abnormal Lab Results - Last 24 Hours (Table) 05/22/20 05/22/20 05/22/20 Range/Units 12:15 17:14 20:11 RBC (4.30-5.90) m/uL Hgb (13.0-17.5) gm/dL Hct (39.0-53.0) % APTT (22.0-30.0) sec BUN (9-20) mg/dL Creatinine (0.66-1.25) mg/dL Glucose (74-99) mg/dL POC Glucose (mg/dL) 127 H 126 H 163 H (75-99) mg/dL 05/22/20 05/23/20 05/23/20 Range/Units 23:02 06:02 07:53 RBC 3.97 L (4.30-5.90) m/uL Hgb 11.6 L (13.0-17.5) gm/dL Hct 37.3 L (39.0-53.0) % APTT 39.5 H (22.0-30.0) sec BUN (9-20) mg/dL Creatinine (0.66-1.25) mg/dL Glucose (74-99) mg/dL POC Glucose (mg/dL) 129 H (75-99) mg/dL 05/23/20 05/23/20 Range/Units 07:53 07:53 RBC (4.30-5.90) m/uL Hgb (13.0-17.5) gm/dL Hct (39.0-53.0) % APTT 49.2 H (22.0-30.0) sec BUN 31 H (9-20) mg/dL Creatinine 1.40 H (0.66-1.25) mg/dL Glucose 128 H (74-99) mg/dL POC Glucose (mg/dL) (75-99) mg/dL Assessment and Plan Plan: 1 abnormal computed tomography scan of the chest was consistent with CHF. Very unlikely to be related to interstitial lung disease or drug induced ILD specially the amiodarone was started approximately 3 days ago at the lower dose. The logical thinking is that the increased interstitial markings on the CAT scan of the chest is attributed to CHF and the patient has exertional dyspnea and orthopnea and elevated proBNP level. He is known to have chronic cardiomyopathy 2 CHF and known history of ischemic cardiomyopathy with impaired LV function 3 coronary artery disease with previous bypass surgery and malaise cardiac catheterizations from January 2018 and the CHATTERJEE to LAD was patent 4 previous history of ventricular fibrillation requiring an AICD placement. The patient had a recent firing of his AICD and the patient was started on amiodarone by his strategic intelligence officer approximately 3 days ago. He is also on beta blockers. Magnesium level was slightly low at 1.5 with a potassium level of 3.8 both need to be replaced had the electrolytes were replaced and the potassium level is up to 4.2. The magnesium level was 1.5 and has to be repeated. 5 chronic kidney disease stage II with a creatinine of 1.4 and a GFR is at 49. 6 hypertension 7 hypothyroidism 8 history of obstructive sleep apnea. 9 history of carotid artery disease on the right with a previous endarterectomy 10 diabetes mellitus type 2 11 history of skin cancer 12 history of smoking 13 episodes of atrial flutter/fibrillation. The patient is on beta blockers and the patient was also started on long-term anticoagulation with Eliquis. plan the patient is hemodynamically stable and he is already feeling better. As stated, likely would've a amiodarone and since induced ILD is quite low on this patient especially that the medication was started approximately a week ago and his presentation was more consistent with CHF. I will suggest continuing the amiodarone as long as the dosing is less than 400 mg on a daily basis. cardiac rhythm. Replace potassium. Replace magnesium. Diuretics with Lasix 40 mg by mouth every 12hours. Monitor fluid balance.consider the possibility of cardiac catheterization in view of these new onset ventricular arrhythmias. The patient is on atenolol 50 mg by mouth daily. He is also on IV heparin for now. He is having runs of atrial flutter/fibrillation. He'll be started on long-term articulation with Eliquis and a prescription was sent. Rest of the management is per cardiology specially with his underlying cardiac arrhythmia including A. fib flutter and ventricular arrhythmias with previous discharge of his AICD. In terms of amiodarone, the treatment can be continued at a dose of 200 mg by mouth twice a day. 80 scan be switched to oral 40 mg by mouth daily. Magnesium will be checked and replaced accordingly.
[2020-05-23] MEDS ORDERED: APIXABAN 5 MG TAB PO SCH (11:15)
[2020-05-23 11:43] VITALS: BP 130/66; PULSE 76; RESP 16
[2020-05-23] MEDS: SODIUM CHLORIDE 0.9% 1,000 ML IV SCH (11:43)
[2020-05-23] MEDS: FERROUS SULFATE 325 MG TAB PO SCH (11:44)
[2020-05-23] MEDS: AMIODARONE 200 MG TAB PO SCH (11:44)
[2020-05-23] MEDS: CHOLECALCIFEROL 25 MCG (1000 IU) TABLET PO SCH (11:44)
[2020-05-23] MEDS: metFORMIN 500 MG TAB PO SCH (11:44)
[2020-05-23] MEDS: SUCRALFATE 1 GM TAB PO SCH (11:44)
[2020-05-23 12:18] LABS: Glucose,Whole Blood 133 mg/dL (75-99)
--- NOTE | 2020-05-23 16:00 | P.PN ---
Subjective Progress Note Date: 05/23/20 HISTORY OF PRESENT ILLNESS: This is a 74-year-old male with a past medical history significant for coronary artery disease with previous CABG, cardiomyopathy, AICD implantation, hype rtension,and hyperlipidemia. Patient follows in the office with Dr. Ayoub. We have been asked to see the patient in consultation for congestive heart failure. Patient examined at the bedside. Patient states that AICD went off last weekend. He was seen in the office and was started on amiodarone. Patient reports over the past few days he has been feeling short of breath and lightheaded. He denied any chest pain or pressure. He denied feeling any palpitations. He reports some increased lower extremity edema. Patient is a current smoker and reports smoking 1-1/2 packs per day. EKG reveals atrial fibrillation with controlled ventricular rate. Left axis deviation. Left bundle branch block Chest xray prominent pulmonary vasculature with diffuse increased lung markings. Correlate for volume overload. Laboratory data: WBC 9.3. Hemoglobin 11.9. Platelet count 220. D-dimer 1.44. Sodium 139. Potassium 3.8. BUN 28. Creatinine 1.34. Troponin negative 1. BNP 5090. Current home cardiac medications include aspirin 81 mg daily, amiodarone 200 mg twice a day, Lopid 600 mg twice a day, lisinopril 2.5 mg daily, atenolol 50 mg daily, Plavix 75 mg daily, Lipitor 80 mg daily Cardiac catheterization history: January 2018 revealing stable coronary artery disease with patent CHATTERJEE graft to the LAD. Medical management was recommended 05/23/2020 Patient examined this morning at the bedside. Patient denies chest pain or pressure. He denies shortness of breath. He remains in atrial fibrillation/flutter with controlled ventricular rates. PHYSICAL EXAM: VITAL SIGNS: Reviewed. GENERAL: Well-developed in no acute distress. HEENT: Head is normocephalic. Pupils are equal, round. Sclerae anicteric. Mucous membranes of the mouth are moist. Neck supple. No JVD or thyromegaly LUNGS: Respirations even and unlabored. Lungs diminished bilaterally. HEART: Irregular rate and rhythm. S1 and S2 heard. ABDOMEN: Soft. Nondistended. Nontender. EXTREMITIES: Normal range of motion. No clubbing or cyanosis. Peripheral pulses intact. Trace lower extremity edema NEUROLOGIC: Awake and alert. Oriented x 3. ASSESSMENT: Acute exacerbation of systolic heart failure, BNP 5090 New-onset atrial fibrillation with controlled ventricular rate Ischemic cardiomyopathy with previous AICD implantation History of ventricular tachycardia with recent AICD firing, originally started on amiodarone outpatient Coronary artery disease with previous CABG, 1991 Hypertension Hyperlipidemia Diabetes mellitus Nicotine dependence, patient smokes 1.5 packs per day Hypokalemia Hypomagnesemia PLAN: Patient has been transitioned to oral Lasix Discontinue IV heparin Begin Eliquis 5 mg twice a day. Continue aspirin. Do not resume Plavix upon discharge Patient anxious to be discharged home today. Agreeable to discharge home today from a cardiac standpoint. Patient to follow-up outpatient with Dr. Ayoub. Nurse practitioner note has been reviewed by physician. Signing provider agrees with the documented findings, assessment, and plan of care. Objective - Vital Signs Vital signs: Vital Signs Temp 96.7 F L 05/23/20 08:00 Pulse 76 05/23/20 11:43 Resp 16 05/23/20 11:43 BP 130/66 05/23/20 11:43 Pulse Ox 96 05/23/20 11:43 Intake & Output 05/22/20 05/23/20 05/23/20 18:59 06:59 18:59 Intake Total 104.879 636.752 Balance 104.879 636.752 Weight 99 kg Intake: IV 40 Heparin Sod,Pork in 0.45% 40 NaCl 25,000 unit In 0.45 % NaCl 1 250ml.bag @ 10 UNITS/KG/HR 9.88 mls/hr IV .Q24H AARON Rx#: [id number] Intake, IV Titration 64.879 161.752 Amount Heparin Sod,Pork in 0.45% 64.879 161.752 NaCl 25,000 unit In 0.45 % NaCl 1 250ml.bag @ 10 UNITS/KG/HR 9.88 mls/hr IV .Q24H AARON Rx#: [id number] Oral 475 Other: Voiding Method Toilet Toilet Urinal - Labs CBC & Chem 7: 05/23/20 07:53 05/23/20 07:53 Labs: Abnormal Lab Results - Last 24 Hours (Table) 05/22/20 05/22/20 05/22/20 Range/Units 17:14 20:11 23:02 RBC (4.30-5.90) m/uL Hgb (13.0-17.5) gm/dL Hct (39.0-53.0) % APTT 39.5 H (22.0-30.0) sec BUN (9-20) mg/dL Creatinine (0.66-1.25) mg/dL Glucose (74-99) mg/dL POC Glucose (mg/dL) 126 H 163 H (75-99) mg/dL 05/23/20 05/23/20 05/23/20 Range/Units 06:02 07:53 07:53 RBC 3.97 L (4.30-5.90) m/uL Hgb 11.6 L (13.0-17.5) gm/dL Hct 37.3 L (39.0-53.0) % APTT (22.0-30.0) sec BUN 31 H (9-20) mg/dL Creatinine 1.40 H (0.66-1.25) mg/dL Glucose 128 H (74-99) mg/dL POC Glucose (mg/dL) 129 H (75-99) mg/dL 05/23/20 05/23/20 Range/Units 07:53 12:16 RBC (4.30-5.90) m/uL Hgb (13.0-17.5) gm/dL Hct (39.0-53.0) % APTT 49.2 H (22.0-30.0) sec BUN (9-20) mg/dL Creatinine (0.66-1.25) mg/dL Glucose (74-99) mg/dL POC Glucose (mg/dL) 133 H (75-99) mg/dL
--- NOTE | 2020-05-23 20:05 | DS ---
DISCHARGE SUMMARY DATE OF SERVICE: 05/23/2020 FINAL DIAGNOSES: 1. Generalized weakness and tiredness possibly congestive heart failure, acute exacerbation with acute on chronic systolic dysfunction, ejection fraction 30 to 35%. 2. Bilateral lower lobe lung lesions, possibly congestive heart failure, interstitial lung disease and lung disease unlikely per Pulmonary. 3. Atrial fibrillation with fast ventricular rate. 4. History of ischemic cardiomyopathy with sustained ventricular tachycardia and AICD shocks previously. 5. Increased creatinine with chronic kidney disease stage 3. 6. Anemia, normocytic anemia of chronic disease. 7. Hypomagnesemia. 8. History of coronary artery disease, coronary artery bypass grafting. 9. Diabetes type 2. 10.Gastroesophageal reflux disease. 11.History of gastrointestinal bleed. 12.Hypertension. 13.Hyperlipidemia. 14.History of sleep apnea. 15.History of syncope. 16.Hypothyroidism. 17.History of abdominal aortic aneurysm and endo graft and stent. 18.History of nicotine dependence, continued ongoing. 19.Social stressors and grief reaction. DISCHARGE DISPOSITION: The patient is being discharged in stable with guarded prognosis. HISTORY OF PRESENT ILLNESS: This 74-year-old gentleman with a past medical history of multiple medical problems, being followed by Dr. Ryann Grullon in the outpatient setting was admitted with weakness, shortness of breath and CHF acute exacerbation, treated with IV diuretics. Patient improved significantly. Cardiology saw the patient. Medications coordinated. Patient improved significantly. On exam, vitals are stable. Cardiovascular: S1, S2. Abdomen soft. Nervous system: No focal deficits. DISCHARGE ADVICE AND MEDICATIONS: 1. Cardiac diet. 2. Activity limited until followup. 3. Follow up with Dr. Ryann Grullon in 2 to 3 days. 4. Follow up with Dr. Ayoub as recommended. MEDICATIONS: Will be as follows: 1. Aspirin 81 mg p.o. daily. 2. Carafate 1 g p.o. b.i.d. 3. Metformin 500 mg p.o. b.i.d. 4. Iron sulfate 1 p.o. b.i.d. 5. Lipitor 80 mg p.o. daily. 6. Lopid 600 mg p.o. b.i.d. 7. Amiodarone 200 mg as before. 8. Synthroid 50 mcg p.o. daily. 9. Tenormin 50 mg p.o. daily. 10.Vitamin D3 1 drop as before. 11.Zestril 2.5 mg daily. 12.Zyloprim 300 mg daily. 13.Eliquis 5 mg p.o. b.i.d. 14.Lasix 40 mg p.o. daily. 15.Nitrostat 0.4 mg sublingual p.r.n. Please also note that the patient was started on Eliquis and Plavix will be discontinued. The patient is to follow up with Cardiology and as well as Nephrology in the outpatient setting. The creatinine was 1.40 at the time when discharged. Once again the patient discharged in stable condition. Guarded prognosis. MMODL / IJN: [id number] / MTDD
[2020-05-24] MEDS ORDERED: FUROSEMIDE 40 MG TAB PO SCH (09:00)
--- NOTE | 2020-05-25 08:56 | CDI ---
Documentation Clarification Form Date: 05/25/20 From: Charis Zuleta Phone: Admit Date: 05/22/2020 04:29:00 PM Patient Name: Christian Latif Visit Number: [id number] Discharge Date: 05/23/2020 02:34:00 PM ATTENTION: The Clinical Documentation Specialists (CDI) and [facility] Coding Staff appreciate your assistance in clarifying documentation. Please respond to the clarification below the line at the bottom and electronically sign. The CDI & [facility] Coding staff will review the response and follow-up if needed. Please note: Queries are made part of the Legal Health Record. If you have any questions, please contact the author of this message via ITS. Dr. Rosalio Lebron, Atrial Fibrillation is documented in your consult, ED note, several PNs and DS. History/Risk Factors: HTN w acute on chronic systolic CHF w CKD III, anemia in CKD, DM w CKD, s/p AICD, hypothyroidism, ischemic cardiomyopathy, hypomagnesemia, HLD, CAD w CABG, AAA w stent placement, smoker Clinical Indicators: Feeling SOB and lightheaded. Denied feeling any palpitations. EKG/telemetry: atrial fibrillation w controlled ventricular rate 76, QRS 148 QTC 446/501 Treatment: IV Heparin if Eliquis covered then dc'd Heparin and start Eliquis, con't Amiodarone, In your professional opinion, can you please clarify the type of Atrial Fibrillation, if known? Chronic Permanent Paroxysmal Persistent, longstanding Persistent, other Persistent, permanent Other, please specify Unable to determine Paroxysmal Afib MTDD
--- NOTE | 2020-05-25 09:02 | CDI ---
Documentation Clarification Form Date: 05/25/20 From: Charis Zuleta Phone: Admit Date: 05/22/2020 04:29:00 PM Patient Name: Christian Latif Visit Number: [id number] Discharge Date: 05/23/2020 02:34:00 PM ATTENTION: The Clinical Documentation Specialists (CDI) and [facility] Coding Staff appreciate your assistance in clarifying documentation. Please respond to the clarification below the line at the bottom and electronically sign. The CDI & [facility] Coding staff will review the response and follow-up if needed. Please note: Queries are made part of the Legal Health Record. If you have any questions, please contact the author of this message via ITS. Dr. Rosalio Lebron, Atrial Flutter is documented in your 05/23 PN. History/Risk factors: HTN w acute on chronic systolic CHF w CKD III, anemia in CKD, DM w CKD, s/p AICD, hypothyroidism, ischemic cardiomyopathy, hypomagnesemia, HLD, CAD w CABG, AAA w stent placement, smoker Clinical Indicators: Per 05/23 PN - He remains in atrial fibrillation/flutter with controlled ventricular rates. EKG/telemetry: atrial fibrillation w controlled ventricular rate 76, QRS 148 QTC 446/501 Treatment: IV Heparin if Eliquis covered then dc'd Heparin and start Eliquis, con't Amiodarone In your professional opinion, in order to capture the severity of condition; can you please clarify the type of Atrial Flutter if known? Typical/Type I Atypical/Type II Other, please specify Unable to determine Unable to determine MTDD
== END 2020-05-23 14:34 | disposition home or self-care (01) | DRG 291 ==
LOC: EC 07:30 → 3SCARD 10:55 → OBSVTOIN 05-22 16:29
PROVIDERS: ADMIT Hospitalist; ATTEND Hospitalist
DX: I13.0 Hypertensive heart and chronic kidney disease with heart failure and stage 1 through stage 4 chronic kidney disease, or unspecified chronic kidney disease (principal); I50.23 Acute on chronic systolic (congestive) heart failure; I49.01 Ventricular fibrillation; I47.2 Ventricular tachycardia; I48.92 Unspecified atrial flutter; D63.1 Anemia in chronic kidney disease; E86.9 Volume depletion, unspecified; E11.22 Type 2 diabetes mellitus with diabetic chronic kidney disease; I48.0 Paroxysmal atrial fibrillation; E03.9 Hypothyroidism, unspecified; N18.30 Chronic kidney disease, stage 3 unspecified; Z20.822 Contact with and (suspected) exposure to COVID-19; I25.5 Ischemic cardiomyopathy; E83.42 Hypomagnesemia; R91.8 Other nonspecific abnormal finding of lung field; I25.10 Atherosclerotic heart disease of native coronary artery without angina pectoris; E78.5 Hyperlipidemia, unspecified; I44.7 Left bundle-branch block, unspecified; F43.20 Adjustment disorder, unspecified; G47.33 Obstructive sleep apnea (adult) (pediatric); K21.9 Gastro-esophageal reflux disease without esophagitis; E87.6 Hypokalemia; M10.9 Gout, unspecified; I25.2 Old myocardial infarction; F17.210 Nicotine dependence, cigarettes, uncomplicated; Z71.6 Tobacco abuse counseling; Z79.82 Long term (current) use of aspirin; Z79.890 Hormone replacement therapy; Z79.84 Long term (current) use of oral hypoglycemic drugs; Z79.02 Long term (current) use of antithrombotics/antiplatelets; Z79.899 Other long term (current) drug therapy; Z87.19 Personal history of other diseases of the digestive system; Z87.01 Personal history of pneumonia (recurrent); Z95.810 Presence of automatic (implantable) cardiac defibrillator; Z95.1 Presence of aortocoronary bypass graft; Z86.79 Personal history of other diseases of the circulatory system; Z87.39 Personal history of other diseases of the musculoskeletal system and connective tissue; Z85.828 Personal history of other malignant neoplasm of skin; Z95.828 Presence of other vascular implants and grafts; Z98.42 Cataract extraction status, left eye; Z98.41 Cataract extraction status, right eye; Z98.890 Other specified postprocedural states; Z82.49 Family history of ischemic heart disease and other diseases of the circulatory system; Z80.7 Family history of other malignant neoplasms of lymphoid, hematopoietic and related tissues
CPT/HCPCS: 36415; 71045; 71046; 71250; 80048; 80053; 81003; 82550; 82728; 83605; 83615; 83735; 83880; 84443; 84484; 85025; 85379; 85610; 85652; 85730; 86140; 87635; 93005; 93306; 94640; 96361; 96365; 96366; 96375; 99285

== ENCOUNTER 2020-07-30 09:01 | Day surgery (SDC) | payer MEDICARE, BC ==
[2020-07-27 09:36] VITALS: BMI 28.5
[~2020-07-30 09:01] MED LIST changes: -ALPRAZolam 0.25 MG TAB PO PRN; -ALPRAZolam 0.5 MG TAB PO PRN; -ASPIRIN 325 MG TAB PO ONE; -ATORVASTATIN 80 MG TAB PO ONE; -NITROGLYCERIN SL TABS 0.4 MG TAB SUBLINGUAL PRN; +SODIUM CHLORIDE 0.9% 1,000 ML IV SCH; -SODIUM CHLORIDE 0.9% 1,000 ML in EMPTY BAG 1 BAG IV ONE
[2020-07-30 09:26] VITALS: RESP 16
[2020-07-30 09:31] LABS: Glucose,Whole Blood 147 mg/dL (75-99)
[2020-07-30 09:58] LABS: Calcium 9.5 mg/dL (8.4-10.2); Potassium 4.8 mmol/L (3.5-5.1)
[2020-07-30] MEDS ORDERED: BENZOCAINE SPRAY 1 CAN TOPICAL ONE (10:28)
[2020-07-30] MEDS ORDERED: PROPOFOL 10 MG/ML 20 ML VIAL IV ONE (10:28)
[2020-07-30 11:09] VITALS: TEMP 98
[2020-07-30] MEDS ORDERED: SODIUM CHLORIDE 0.9% 1,000 ML IV SCH (11:15)
--- NOTE | 2020-07-30 12:08 | P.PCN ---
Date of Procedure: 07/30/20 Preoperative Diagnosis: Atrial fibrillation Postoperative Diagnosis: Conversant to sinus rhythm Implants: RASHAAD followed by cardioversion Description of Procedure: INDICATION: To rule out clot in the left atrial appendage before cardioversion CONSENT: Informed verbal consent was obtained PROCEDURE: . Patient was brought to the lab in a fasting state. He was prepped and draped in the usual fashion. His throat was sprayed with Hurricaine. It. Patient was given IV sedation by department of anesthesia. A lubricated probe was introduced into the oropharynx and esophagus. Multiple views were obtained. Color, pulsed and continuous Doppler studies were done. Saline contrast bubble injections were performed FINDINGS: . There is no clot in the left atrial appendage. The aortic valve is tricuspid and function normally. Mitral valve showed mild regurgitation. Tricuspid valve showed mild to moderate regurgitation. There is biatrial enlargement. The left ventricle is dilated. This severe generalized hypokinesi a with an ejection fraction probably in the range of 20-25%. Saline contrast bubble injection did not reveal any crossing of the bubbles across the interatrial septum IMPRESSION: #1. No clot in the left atrial appendage. #2. No PFO #3. Severe cardiomyopathy, severely impaired LV function #4. Biatrial enlargement. #5. Normal aortic valve function. #6. Mild mitral regurgitation and mild-to- moderate tricuspid regurgitation PLAN: Proceed with cardioversion. CARDIOVERSION: After completion of the RASHAAD. Patient was continued on IV sedation. Anterior posterior paddles were applied. A single shock of 200 J was applied. Patient converted to sinus rhythm and sinus bradycardia. No immediate complications. Final impression: Successful conversion to sinus rhythm. No complications. Plan: Patient will be discharged home within next 3 to4 hours. Follow-up in the office in one week
[2020-07-30 12:31] VITALS: PULSE 56
[2020-07-30 12:33] VITALS: BP 133/79
== END 2020-07-30 12:40 | disposition home or self-care (01) ==
LOC: CATHCVL 09:01
PROVIDERS: ATTEND Internal Medicine Cardiovascular Disease
DX: I48.91 Unspecified atrial fibrillation (principal); I08.1 Rheumatic disorders of both mitral and tricuspid valves; I11.0 Hypertensive heart disease with heart failure; I50.9 Heart failure, unspecified; E78.00 Pure hypercholesterolemia, unspecified; Z95.810 Presence of automatic (implantable) cardiac defibrillator; I44.7 Left bundle-branch block, unspecified; Z86.79 Personal history of other diseases of the circulatory system; I25.2 Old myocardial infarction; Z95.1 Presence of aortocoronary bypass graft; Z79.01 Long term (current) use of anticoagulants; Z79.84 Long term (current) use of oral hypoglycemic drugs; Z79.82 Long term (current) use of aspirin; Z79.890 Hormone replacement therapy; Z79.899 Other long term (current) drug therapy
CPT/HCPCS: 93312; 93320; 93325; 92960; 80048; 87635; J2704

== ENCOUNTER 2021-05-10 08:07 | Day surgery (SDC) | payer MEDICARE, BC ==
[2021-05-09 10:14] VITALS: BMI 26.8
[2021-05-10 08:36] LABS: Glucose,Whole Blood 139 mg/dL (75-99)
[2021-05-10 08:39] VITALS: BP 157/82; PULSE 69; RESP 18; TEMP 98.4
[2021-05-10] MEDS ORDERED: IOPAMIDOL-370 50ML BTL INJ ONE (09:34)
--- NOTE | 2021-05-10 19:08 | P.EPPROC ---
- EP Procedure Note Electrophysiology Procedure Note: Diagnosis Worsening cardiomyopathy CHF exacerbation, acute on chronic with recent hospitalization Underlying left bundle branch block pattern on 12-lead EKG Severe cardiomyopathy, ischemic Awaiting upgrade to a biventricular ICD Interrogation of the ICD, [employer]onic The A[employer]et[employer] ICD was interrogated This is a single chamber ICD Battery life 4.7 years Pacing impedance 342 ohms RV coil impedance 38 ohms, SVC coil impedance 51 ohms Capture threshold 1.2 V at 0.4 ms R waves 7.3 mV Cinefluoroscopy of the lead revealed no fractures or breaks Left upper extremity venogram 10 mL IV dye injected in the left arm Patent left axillary and subclavian venous system Suggest Maximize ENTRESTO and carvedilol Consider upgrade to a biventricular ICD
== END 2021-05-10 10:17 | disposition home or self-care (01) ==
LOC: CATHEP 08:07
PROVIDERS: ATTEND Internal Medicine Clinical Cardiac Electrophysiology
DX: I25.5 Ischemic cardiomyopathy (principal); I50.9 Heart failure, unspecified; I44.7 Left bundle-branch block, unspecified; Z20.822 Contact with and (suspected) exposure to COVID-19
CPT/HCPCS: 36005; 75820; 87635; Q9967

== ENCOUNTER 2021-07-05 09:31 | Day surgery (SDC) | payer MEDICARE, BC ==
[2021-07-01 15:05] VITALS: BMI 26.2
[~2021-07-05 09:31] MED LIST changes: +LACTATED RINGERS 1,000 ML IV SCH; +LIDOCAINE 1% (10MG/ML) FOR IV START INTRADERMA PRN; +MORPHINE SULFATE 2 MG/ML SYRINGE IV PRN; +ONDANSETRON 4 MG/2 ML VIAL IVP PRN; +ceFAZolin 1 GM in SODIUM CHLORIDE 0.9% IRRIG BTL 250 ML IRRIGATION PRN
[2021-07-05 10:05] LABS: Glucose,Whole Blood 116 mg/dL (75-99)
[2021-07-05 10:15] LABS: Anisocytosis Slight; Basophils % (A) 1 %; Eosinophils # (A) 0.5 k/uL (0-0.7); Eosinophils % (A) 5 %; HCT 40.2 % (39.0-53.0); HGB 12.6 gm/dL (13.0-17.5); Lymphocytes # (A) 2.1 k/uL (1.0-4.8); Lymphocytes % (A) 25 %; MCH 28.2 pg (25.0-35.0); MCHC 31.4 g/dL (31.0-37.0); MCV 89.6 fL (80.0-100.0); Mean Platelet Volume 8.4; Monocytes # (A) 0.6 k/uL (0-1.0); Monocytes % (A) 7 %; Neutrophils # (A) 5.1 k/uL (1.3-7.7); Neutrophils % (A) 61 %; Platelet Count 194 k/uL (150-450); RBC 4.49 m/uL (4.30-5.90); RDW 16.2 % (11.5-15.5); WBC 8.5 k/uL (3.8-10.6)
[2021-07-05 10:24] LABS: Calcium 9.4 mg/dL (8.4-10.2); Potassium 4.6 mmol/L (3.5-5.1)
[2021-07-05] MEDS ORDERED: MIDAZOLAM 2 MG/2 ML VIAL ONE (11:26)
[2021-07-05] MEDS ORDERED: diphenhydrAMINE 50 MG/ML 1 ML VIAL ONE (11:26)
[2021-07-05] MEDS ORDERED: fentaNYL (PF) 50 MCG/ML 2 ML AMP ONE (11:26)
[2021-07-05] MEDS ORDERED: VANCOMYCIN 1,250 MG in SODIUM CHLORIDE 0.9% 500 ML 500 ML IVPB STA (11:44)
[2021-07-05] MEDS ORDERED: VANCOMYCIN 1,250 MG in SODIUM CHLORIDE 0.9% 250 ML IVPB STA (11:48)
[2021-07-05] MEDS ORDERED: LIDOCAINE 1% INJ 10MG/ML (20 ML MDV) ONE (11:52)
[2021-07-05] MEDS ORDERED: LIDOCAINE 1% INJ 10MG/ML (20 ML MDV) SQ ONE ×2 (12:08→12:18)
[2021-07-05] MEDS ORDERED: ACETAMINOPHEN TAB 325 MG TAB PO PRN (14:37)
--- NOTE | 2021-07-05 14:49 | P.EPPROC ---
- EP Procedure Note Electrophysiology Procedure Note: Diagnosis Single-chamber ICD in situ History of sustained ventricular tachycardia requiring ICD shock in 2010 Ischemic cardio myopathy with severe LV dysfunction Congestive heart failure with recent CHF exacerbation and hospitalization Underlying left bundle branch block Upgrade to biventricular ICD recommended Procedure Upgrade to LV/ biventricular ICD Patient has a single chamber ICD in situ Details Patient was brought to the EP lab in a fasting state. Written informed consent was obtained prior to the procedure. Conscious sedation provided by anesthesia team IV antibiotics administered. Local anesthesia administered. A 4 cm incision made in the pectoral area. Subfascial pocket made. Venous access obtained Venous sheaths placed. Leads placed in the right heart Atrial lead position the right atrial appendage. Metronic 52 cm model #5076 P waves 1.5 mV pacing impedance 988 ohms pacing threshold 1.75 V at 0.4 ms Excellent current of injury, right atrial appendage position RV lead position in the RV apex. Chronic RV lead. R waves 7 mV pacing impedance 323 ohms high-voltage impedance 50 ohms SVC 47 ohms Pacing threshold 1.25 V at 0.4 ms LV lead positioned in the anterior LV vein. Lead tip at 3 o'clock position in the CONGOLESE view Pacing threshold 0.75 V at 0.5 ms, 10 V test negative. Pacing impedance 456 ohms Biventricular ICD device connected to the leads and placed in the subfascial pocket Old ICD generator explanted Patient tolerance the procedure well without acute complications MADIT RIT programming for tachycardia therapies Bi V pacing parameters programmed Plan Continue cardiac medications and heart failure medications DFT testing in 3 months
[2021-07-05] MEDS ORDERED: ACETAMINOPHEN IV (For NPO) 1,000 MG in EMPTY BAG 1 BAG IVPB ONE (16:00)
[2021-07-05] MEDS: carvediloL 3.125 MG TAB PO SCH (17:22)
--- NOTE | 2021-07-05 18:23 | XR ---
EXAMINATION TYPE: XR chest 1V portable DATE OF EXAM: 07/05/2021 5:36 PM COMPARISON: Chest radiographs from 05/22/2020. TECHNIQUE: XR chest 1V portable Frontal view of the chest. CLINICAL INDICATION:Male, 75 years old with history of Lead placement check; FINDINGS: Lungs/Pleura: There is no evidence of pleural effusion, focal consolidation, or pneumothorax. Pulmonary vascularity: Pulmonary vascular congestion. Heart/mediastinum: Cardiomediastinal silhouette is enlarged and stable. Three lead cardiac conduction device overlying the left hemithorax with lead tips projecting over the right ventricle, right atriu m and coronary sinus. Musculoskeletal:Midline sternotomy wires and surgical clips project over the mediastinum. IMPRESSION: 1. Left chest wall cardiac conduction device with leads in appropriate position. 2. Cardiomegaly and mild pulmonary vascular congestion. Correlate with BNP for congestive heart fail ure.
[2021-07-05] MEDS ORDERED: AMIODARONE 100 MG TAB PO SCH (21:00)
[2021-07-05] MEDS ORDERED: ASPIRIN 81 MG PO SCH (21:00)
[2021-07-05] MEDS: APIXABAN 5 MG TAB PO SCH (21:13)
[2021-07-05] MEDS: SACUBITRIL/VALSARTAN 24 MG-26 MG TABLET PO SCH (21:13)
[2021-07-06] MEDS ORDERED: LEVOTHYROXINE 50 MCG TAB PO SCH (07:30)
[2021-07-06 07:34] VITALS: BP 128/65; PULSE 84; RESP 17; TEMP 98
--- NOTE | 2021-07-06 07:36 | P.EPPROC ---
- EP Procedure Note Electrophysiology Procedure Note: Extended procedure LV lead position was difficult Coronary sinus access was difficult despite having a large coronary sinus Observe valve at the os of the coronary sinus the occluded cannulation Multiple attempts were made with 2 different sheaths to find the access the coronary sinus Thereafter the balloon was placed in the mid coronary sinus but there was very poor visualization of the LV veins Elevated pressures were noted A guidewire was placed in the coronary sinus to look for LV veins An anterolateral vein was found The dilator was removed, backing out of this guidewire The [employer] screw and LV lead was frontloaded from this guidewire and possible lung coronary sinus into the LV vein May stable position was finally achieved and the lead was screwed in Excellent thresholds noted No diaphragmatic stimulation Subsequently a new atrial lead was implanted This lead was initially unstable and dislodged from the appendage area A new atrial lead position is found with good current of injury could contact Initial thresholds elevated but there was slowly improving to is the end of the case with improvement in sensing
[2021-07-06] MEDS: SACUBITRIL/VALSARTAN 24 MG-26 MG TABLET PO SCH (08:01)
[2021-07-06] MEDS: APIXABAN 5 MG TAB PO SCH (08:03)
[2021-07-06] MEDS: carvediloL 3.125 MG TAB PO SCH (08:03)
[2021-07-06] MEDS ORDERED: FUROSEMIDE 40 MG TAB PO SCH (09:00)
--- NOTE | 2021-07-06 12:07 | P.DS ---
Providers Attending physician: Juan Ramon Johnston Primary care physician: [facility] Course: Patient is doing well from a cardiac standpoint. 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 Ayoub in a week Plan - Discharge Summary Discharge Rx Participant: No New Discharge Prescriptions: No Action Aspirin 81 mg PO HS Atorvastatin Calcium [Lipitor] 80 mg PO MOWEFR Levothyroxine Sodium [Synthroid] 50 mcg PO AC-BRKFST Nitroglycerin Sl Tabs [Nitrostat] 0.4 mg SUBLINGUAL Q5M PRN tab PRN Reason: Chest Pain Apixaban [Eliquis] 5 mg PO BID #60 tab Furosemide [Lasix] 40 mg PO QAM Albuterol Nebulized [Ventolin Nebulized] 2.5 mg INHALATION QID PRN PRN Reason: Shortness Of Breath Bio D Mulsion Forte Gtts 1 drop PO DAILY Amiodarone [Cordarone] 100 mg PO HS Spironolactone 12.5 mg PO DAILY Semaglutide [Ozempic] 1 mg SQ ESTRADA Sacubitril/Valsartan [Entresto 24 mg-26 mg Tablet] 1 each PO BID Carvedilol [Coreg] 3.125 mg PO BID Discharge Medication List Aspirin 81 mg PO HS 03/30/15 [History] Atorvastatin Calcium [Lipitor] 80 mg PO MOWEFR 11/30/17 [History] Levothyroxine Sodium [Synthroid] 50 mcg PO AC-BRKFST 11/30/17 [History] Nitroglycerin Sl Tabs [Nitrostat] 0.4 mg SUBLINGUAL Q5M PRN tab 02/04/18 [Rx] Apixaban [Eliquis] 5 mg PO BID #60 tab 05/23/20 [Rx] Albuterol Nebulized [Ventolin Nebulized] 2.5 mg INHALATION QID PRN 05/09/21 [History] Amiodarone [Cordarone] 100 mg PO HS 05/09/21 [History] Furosemide [Lasix] 40 mg PO QAM 05/09/21 [History] Sacubitril/Valsartan [Entresto 24 mg-26 mg Tablet] 1 each PO BID 05/09/21 [History] Semaglutide [Ozempic] 1 mg SQ ESTRADA 05/09/21 [History] Spironolactone 12.5 mg PO DAILY 05/09/21 [History] Carvedilol [Coreg] 3.125 mg PO BID 05/10/21 [History] Bio D Mulsion Forte Gtts 1 drop PO DAILY 07/01/21 [History] Follow up Appointment(s)/Referral(s): Juan Ramon Johnston MD [STAFF PHYSICIAN] - 07/14/21 3:30 pm (Device Check 330pm , Appointment with Dr Bullock at 345pm ) Patient Instructions/Handouts: Pacemaker (DC) Discharge Disposition: HOME SELF-CARE
[2021-07-06] MEDS ORDERED: ATORVASTATIN 80 MG TAB PO SCH (21:00)
[2021-07-10] MEDS ORDERED: NON FORMULARY DRUG (Semaglutide [Ozempic] 1 MG/0.75 ML Each) SQ SCH (14:33)
== END 2021-07-06 10:33 | disposition home or self-care (01) ==
LOC: CATHEP 09:31 → 6NMEDSUR 13:58 → CATHEP 07-06 10:33
PROVIDERS: ATTEND Internal Medicine Clinical Cardiac Electrophysiology
DX: I50.9 Heart failure, unspecified (principal); I47.2 Ventricular tachycardia; Z79.01 Long term (current) use of anticoagulants; Z79.82 Long term (current) use of aspirin; Z79.899 Other long term (current) drug therapy; Z95.0 Presence of cardiac pacemaker; Z20.822 Contact with and (suspected) exposure to COVID-19
CPT/HCPCS: 33225; 33249; 80048; 85025; 87635; 71045; C1769 ×4; C1892 ×2; C1730; C1898; C1882; J2250; J3370; J1200; J0690 ×2; J2001; J3010; J0131

== ENCOUNTER 2021-07-18 14:00 | Day surgery (SDC) | payer MEDICARE, BC ==
[2021-07-18 12:30] VITALS: RESP 18; TEMP 97
[~2021-07-18 14:00] MED LIST changes: +CEPHALEXIN 500 MG CAP PO STA; -LACTATED RINGERS 1,000 ML IV SCH; -LIDOCAINE 1% (10MG/ML) FOR IV START INTRADERMA PRN; +LIDOCAINE 1% INJ 10MG/ML (30 ML VIAL-PF) SQ ONE; -MORPHINE SULFATE 2 MG/ML SYRINGE IV PRN; -ONDANSETRON 4 MG/2 ML VIAL IVP PRN; -SODIUM CHLORIDE 0.9% 1,000 ML IV SCH; +SODIUM CHLORIDE 0.9% 500 ML 500 ML IV ONE; -ceFAZolin 1 GM in SODIUM CHLORIDE 0.9% IRRIG BTL 250 ML IRRIGATION PRN
[2021-07-18 15:26] VITALS: PULSE 75
[2021-07-18 15:31] VITALS: BP 149/78
--- NOTE | 2021-07-19 19:57 | P.EPPROC ---
- EP Procedure Note Electrophysiology Procedure Note: Diagnosis Postprocedure hematoma with minimal wound dehiscence presenting as a slow leak of dark, old blood This hematoma was not tense per my palpation Under sterile precautions, after oral antibiotics Silk sutures were applied in the area of the slow leak However the oozing persisted Therefore, under. Precautions, after IV antibiotics A stab incision was made at the lower end of the hematoma away from the incision site Old dark blood with clots were aspirated out There was reduction the hematoma size No further oozing was noted at the lateral edge of the original incision This stab wound was closed in 2 layers The area was dressed per protocol Oral antibiotics prescribed Patient discharged home I will see him again at the end of the week
== END 2021-07-18 15:30 | disposition home or self-care (01) ==
LOC: CATHEP 14:00
PROVIDERS: ATTEND Internal Medicine Clinical Cardiac Electrophysiology
DX: T81.30XA Disruption of wound, unspecified, initial encounter (principal)
CPT/HCPCS: 10140; J0690; J2001

== ENCOUNTER → 2021-07-18 | Outpatient (CLI) | payer MEDICARE, BC | END | disposition home or self-care (01) | LOC: OR 12:12 | PROVIDERS: ATTEND Internal Medicine Clinical Cardiac Electrophysiology | DX: Z53.9 Procedure and treatment not carried out, unspecified reason (principal) ==

== ENCOUNTER → 2021-09-14 | Outpatient (CLI) | payer MEDICARE, BC ==
[2021-09-14 22:30] LABS: HCT 42.6 % (39.6-50.0); HGB 12.9 g/dL (13.0-17.0); MCH 28.4 pg (27.0-32.0); MCHC 30.3 g/dL (32.0-37.0); MCV 93.8 fL (80.0-97.0); Mean Platelet Volume 11.5 fL (9.5-12.2); NRBC Per 100 WBC 0 /100 WBCS (0.0-0.0); Platelet Count 181 X 10*3/uL (140-440); RBC 4.54 X 10*6/uL (4.40-5.60); RDW 13.5 % (11.5-14.5); WBC 6.46 X 10*3/uL (4.50-10.00)
[2021-09-14 22:32] LABS: Blood Urea Nitrogen 22.2 mg/dL (9.0-27.0); Non-African American GFR(CKD) 52.6 (60.0-200.0); Potassium 4.1 mmol/L (3.5-5.5)
== END | disposition home or self-care (01) ==
LOC: LABPAT 14:42
PROVIDERS: ATTEND Internal Medicine Clinical Cardiac Electrophysiology
DX: Z01.812 Encounter for preprocedural laboratory examination (principal); I25.2 Old myocardial infarction
CPT/HCPCS: 80051; 82565; 84520; 85027

== ENCOUNTER → 2021-10-31 | Outpatient (CLI) | payer MEDICARE, BC ==
[2021-10-31 19:06] LABS: INR 0.96 (0.90-1.11); Prothrombin Time 10.9 sec (9.9-11.9)
[2021-10-31 19:34] LABS: Anion Gap 8.8 mmol/L (10.00-18.00); Blood Urea Nitrogen 23.8 mg/dL (9.0-27.0); Carbon Dioxide 25.2 mmol/L (20.0-27.5); Non-African American GFR(CKD) 52.6 (60.0-200.0); Potassium 4.8 mmol/L (3.5-5.5)
[2021-10-31 19:40] LABS: HCT 41.8 % (39.6-50.0); HGB 12.9 g/dL (13.0-17.0); MCH 28.4 pg (27.0-32.0); MCHC 30.9 g/dL (32.0-37.0); MCV 92.1 fL (80.0-97.0); Mean Platelet Volume 11.6 fL (9.5-12.2); NRBC Per 100 WBC 0 /100 WBCS (0.0-0.0); Platelet Count 167 X 10*3/uL (140-440); RBC 4.54 X 10*6/uL (4.40-5.60); RDW 13.8 % (11.5-14.5); WBC 7.04 X 10*3/uL (4.50-10.00)
== END | disposition home or self-care (01) ==
LOC: LABPAT 11:24
PROVIDERS: ATTEND Internal Medicine Clinical Cardiac Electrophysiology
DX: Z01.812 Encounter for preprocedural laboratory examination (principal); I25.5 Ischemic cardiomyopathy
CPT/HCPCS: 80051; 82565; 84520; 85027; 85610

== ENCOUNTER → 2022-06-19 | Outpatient (CLI) | payer MEDICARE, BC ==
[2022-06-19 16:21] LABS: African American GFR (CKD) 51.7 (60.0-200.0); Anion Gap 12.8 mmol/L (10.00-18.00); BUN/Creat Ratio 24.16 Ratio (12.00-20.00); Calcium 9.7 mg/dL (8.7-10.3); Carbon Dioxide 22.8 mmol/L (20.0-27.5); Non-African American GFR(CKD) 44.6 (60.0-200.0); Potassium 4.6 mmol/L (3.5-5.5)
[2022-06-20 05:24] LABS: Basophils # (A) 0.03 X 10*3/uL (0.00-0.10); Basophils % (A) 0.4 %; Eosinophils # (A) 0.37 X 10*3/uL (0.04-0.35); HCT 40.3 % (39.6-50.0); HGB 12.5 g/dL (13.0-17.0); Immature Grans, Automated 0.3 %; Lymphocytes # (A) 2.38 X 10*3/uL (0.90-5.00); Lymphocytes % (A) 32.2 %; MCH 28.5 pg (27.0-32.0); Monocytes # (A) 0.75 X 10*3/uL (0.20-1.00); Monocytes % (A) 10.2 %; NRBC Per 100 WBC 0 /100 WBCS (0.0-0.0); Neutrophils # (A) 3.83 X 10*3/uL (1.80-7.70); Neutrophils % (A) 51.9 %; Platelet Count 178 X 10*3/uL (140-440); RBC 4.38 X 10*6/uL (4.40-5.60); RDW 13.7 % (11.5-14.5); WBC 7.38 X 10*3/uL (4.50-10.00)
== END | disposition home or self-care (01) ==
LOC: LABPAT 12:43
PROVIDERS: ATTEND Urology
DX: Z01.812 Encounter for preprocedural laboratory examination (principal); D49.4 Neoplasm of unspecified behavior of bladder
CPT/HCPCS: 80048; 85025

== ENCOUNTER 2022-06-29 09:31 | Day surgery (SDC) | payer MEDICARE, BC ==
--- NOTE | 2022-06-28 18:50 | P.GSHP ---
History of Present Illness H&P Date: 06/28/22 Chief Complaint: Gross hematuria The patient is a 76-year-old white male who experienced gross painless hematuria in March 2022. CT scan showed a 3.8 cm right adrenal mass and multiple right renal cysts measuring up to 3.8 cm in size. Cystoscopy showed tumors located in the left lateral bladder wall measuring 3-4 cm in diameter. - Genitourinary (Male) Genitourinary: Reports hematuria, Denies dysuria, Denies flank pain Past Medical History Past Medical History: Atrial Fibrillation, Coronary Artery Disease (CAD), Cancer, Chest Pain / Angina, Heart Failure, Diabetes Mellitus, Hyperlipidemia, Myocardial Infarction ([place]), Pneumonia, Sleep Apnea/CPAP/BIPAP, Syncope, Thyroid Disorder, Vascular Disorder Additional Past Medical History / Comment(s): Cardiomyopathy, hx black stools, anemia, hemmorhoids, dizziness upon rising in am, hypothyroid, basal & squamous skin cancers., hx gout., hx low kidney function., pt states open sore left lower leg - now healed., See Cardiology [facility] & P. no longer uses cpap Last Myocardial Infarction Date:: 1989 History of Any Multi-Drug Resistant Organisms: None Reported Past Surgical History: AICD, Coronary Bypass/CABG, Heart Catheterization, Orthopedic Surgery, Pacemaker Additional Past Surgical History / Comment(s): 2007 AICD/pacemaker implant with generator change 2015, 4 vessel CABG in 1991, right carotid endartectomy, AAA endograft/stent, left elbow bursa removed, EGD, colonoscopies, skin cancer removals, bilateral cataracts Past Anesthesia/Blood Transfusion Reactions: No Reported Reaction Additional Past Anesthesia/Blood Transfusion Reaction / Comment(s): no blood t ransfusions Type of Cardiac Device: Permanent Pacemaker, AICD Device Placement Date:: 2007 implant and gen change in 2015 Smoking Status: Former smoker - Past Family History Father Family Medical History: Myocardial Infarction ([place]) Additional Family Medical History / Comment(s): AT 60 WITH [place]. Brother(s) Family Medical History: Coronary Artery Disease (CAD) Additional Family Medical History / Comment(s): CABG-TWIN BROTHER. Mother Family Medical History: Cancer Additional Family Medical History / Comment(s): MULTIPLE MYELOMA. Medications and Allergies Home Medications Medication Instructions Recorded Confirmed Type Aspirin 81 mg PO HS 03/30/15 06/23/22 History Atorvastatin Calcium [Lipitor] 40 mg PO MOWEFR 11/30/17 06/23/22 History Levothyroxine Sodium [Synthroid] 50 mcg PO AC-BRKFST 11/30/17 06/23/22 History Nitroglycerin Sl Tabs [Nitrostat] 0.4 mg SUBLINGUAL Q5M PRN tab 02/04/18 06/23/22 Rx Apixaban [Eliquis] 5 mg PO BID #60 tab 05/23/20 06/23/22 Rx Albuterol Nebulized [Ventolin 2.5 mg INHALATION QID PRN 05/09/21 06/23/22 History Nebulized] Amiodarone [Cordarone] 200 mg PO BID 05/09/21 06/23/22 History Sacubitril/Valsartan [Entresto 24 1 each PO BID 05/09/21 06/23/22 History mg-26 mg Tablet] Semaglutide [Ozempic] 1 mg SQ ESTRADA 05/09/21 06/23/22 History Spironolactone 12.5 mg PO DAILY 05/09/21 06/23/22 History carvediloL [Coreg] 3.125 mg PO BID 05/10/21 06/23/22 History Bio D Mulsion Forte Gtts 1 drop PO DAILY 07/01/21 06/23/22 History traZODone HCL [Desyrel] 50 mg PO HS 06/23/22 06/23/22 History Allergies Allergy/AdvReac Type Severity Reaction Status Date / Time No Known Allergies Allergy Verified 06/23/22 09:26 Surgical - Exam - General well developed, well nourished, no distress - Respiratory normal respiratory effort - Abdomen Abdomen: soft, non tender, no guarding, no rigid, no rebound - Genitourinary normal penis with no external lesions, testicles non-tender - Psychiatric oriented to time, oriented to person, oriented to place, speech is normal, memory intact Results - Imaging CT scan - abdomen: report reviewed, image reviewed Assessment and Plan (1) Neoplasm of unspecified behavior of bladder Status: Acute Code(s): D49.4 - NEOPLASM OF UNSPECIFIED BEHAVIOR OF BLADDER SNOMED Code(s): 095308994 Plan: Cystoscopy, transurethral resection of bladder tumors, instillation of intravesical gemcitabine. The procedure then reviewed in detail with the patient. He has been made aware of potential risks, which include anesthesia, bleeding, infection, and bladder perforation. His been cleared by cardiology.
[~2022-06-29 09:31] MED LIST changes: -CEPHALEXIN 500 MG CAP PO STA; +DEXAMETHASONE SOD PHOSPHATE 4 MG/ML 1 ML VIAL IV ONE; +GEMCITABINE HCL 1,000 MG in SODIUM CHLORIDE 0.9% 40 ML, EMPTY SYRINGE 1 SYR MISCELLANE ONE; +LACTATED RINGERS 1,000 ML IV SCH; -LIDOCAINE 1% INJ 10MG/ML (30 ML VIAL-PF) SQ ONE; +ONDANSETRON 4 MG/2 ML VIAL IVP ONE; -SODIUM CHLORIDE 0.9% 500 ML 500 ML IV ONE; +fentaNYL (PF) 50 MCG/ML 2 ML AMP IV PRN
[2022-06-29] MEDS ORDERED: LIDOCAINE 1% (10MG/ML) FOR IV START INTRADERMA ONE (10:15)
[2022-06-29] MEDS ORDERED: KETAMINE 10 MG/ML 20 ML VIAL ONE (10:38)
[2022-06-29] MEDS ORDERED: MIDAZOLAM 2 MG/2 ML VIAL ONE (10:38)
[2022-06-29] MEDS ORDERED: PHENYLEPHRINE-0.9% NACL SYG 1,000 MCG/10 ML SYRINGE ONE (10:38)
[2022-06-29] MEDS ORDERED: fentaNYL (PF) 50 MCG/ML 2 ML AMP ONE (10:38)
[2022-06-29] MEDS ORDERED: PROPOFOL 10 MG/ML 20 ML VIAL IV ONE (10:38)
[2022-06-29 10:45] LABS: Glucose,Whole Blood 127 mg/dL (70-110)
--- NOTE | 2022-06-29 12:01 | P.OP ---
Date of Procedure: 06/29/22 Preoperative Diagnosis: Bladder tumor Postoperative Diagnosis: Same Procedure(s) Performed: Cystoscopy, transurethral resection of bladder tumor (medium), instillation of intravesical gemcitabine Anesthesia: spinal Surgeon: Brayan Arguelles Estimated Blood Loss (ml): 10 IV fluids (ml): 500 Pathology: other (Left lateral bladder wall tumor fragments) Condition: stable Disposition: PACU Indications for Procedure: The patient is a 76-year-old white male who experienced gross painless hematuria in March 2022. CT scan showed a 3.8 cm right adrenal mass and multiple right renal cysts measuring up to 3.8 cm in size. Cystoscopy showed tumors located in the left lateral bladder wall measuring 3-4 cm in diameter. Operative Findings: 3-4 cm left lateral bladder wall tumor, papillary Description of Procedure: The patient was taken in the operating room and placed in the dorsal lithotomy position, with his legs supported in Robb stirrups. The external genitalia was prepped and draped sterilely. The 25-Norwegian ACMI resectoscope sheath was introduced into the bladder. The bladder was inspected. Both ureteral orifices were of normal anatomic location and configuration, and clear urine effluxed from both. The entire bladder was examined, revealing a 3-4 cm papillary tumor lateral to the left ureteral orifice. The prostate was enlarged with a trilobar configuration. The prostatic urethral mucosa was friable and prone to losing. Using the cutting loop, the tumor was resected down to the muscle. The base of the resection bed was fulgurated. There was no evidence of bladder perforation. The left ureteral orifice was not resected or fulgurated. The resected tissue was saved and sent for pathologic examination. Some oozing was noted from the vesical neck and left prostatic urethra. This was controlled with electrocautery. Excellent hemostasis was attained. The resectoscope was removed, and an 18-Norwegian Parisi catheter was inserted. The return was clear. 2 g of gemcitabine and 50 mL was instilled into the bladder. The Parisi catheter was clamped. The patient tolerated the procedure well and was taken to the recovery room in stable condition.
[2022-06-29 12:07] VITALS: TEMP 97.4
[2022-06-29 15:43] VITALS: BP 150/82; PULSE 67; RESP 18
== END 2022-06-29 15:46 | disposition home or self-care (01) ==
LOC: OR 09:31
PROVIDERS: ATTEND Urology
DX: C67.9 Malignant neoplasm of bladder, unspecified (principal); I48.91 Unspecified atrial fibrillation; I25.10 Atherosclerotic heart disease of native coronary artery without angina pectoris; E78.5 Hyperlipidemia, unspecified; I25.2 Old myocardial infarction; G47.33 Obstructive sleep apnea (adult) (pediatric); I50.9 Heart failure, unspecified; E11.36 Type 2 diabetes mellitus with diabetic cataract; E03.9 Hypothyroidism, unspecified; Z95.5 Presence of coronary angioplasty implant and graft; Z95.1 Presence of aortocoronary bypass graft; Z95.810 Presence of automatic (implantable) cardiac defibrillator; Z87.891 Personal history of nicotine dependence; Z82.49 Family history of ischemic heart disease and other diseases of the circulatory system; Z79.82 Long term (current) use of aspirin; Z79.01 Long term (current) use of anticoagulants; Z79.899 Other long term (current) drug therapy
CPT/HCPCS: 52235; J2250; J1100; J0690; J2405; J3010; J2370; J2704; 88307

== ENCOUNTER → 2024-03-04 | Outpatient (CLI) | payer MEDICARE, BC ==
[2024-03-04 16:24] LABS: Basophils # (A) 0.03 X 10*3/uL (0.00-0.10); Basophils % (A) 0.4 %; Eosinophils # (A) 0.28 X 10*3/uL (0.04-0.35); Eosinophils % (A) 4.2 %; HCT 44.8 % (39.6-50.0); HGB 13.7 g/dL (13.0-17.0); Lymphocytes # (A) 1.51 X 10*3/uL (0.90-5.00); Lymphocytes % (A) 22.5 %; MCH 28.3 pg (27.0-32.0); MCHC 30.6 g/dL (32.0-37.0); MCV 92.6 FL (80.0-97.0); Mean Platelet Volume 11.8 FL (9.5-12.2); NRBC Per 100 WBC 0 X 10*3/uL (0.00-0.01); Neutrophils # (A) 4.26 X 10*3/uL (1.80-7.70); Neutrophils % (A) 63.6 %; Platelet Count 189 X 10*3/uL (140-440); RBC 4.84 X 10*6/uL (4.40-5.60); RDW 14.4 % (11.5-14.5)
[2024-03-04 16:46] LABS: BUN/Creat Ratio 19.56 Ratio (12.00-20.00); Blood Urea Nitrogen 31.3 mg/dL (9.0-27.0); Calcium 9.4 mg/dL (8.7-10.3); Carbon Dioxide 23.6 mmol/L (21.6-31.8); Chloride 106 mmol/L (96-109); Glucose 122 mg/dL (70-110); Potassium 4.3 mmol/L (3.5-5.5); Sodium 141 mmol/L (135-145)
== END | disposition home or self-care (01) ==
LOC: LABWHC1 10:04
PROVIDERS: ATTEND Urology
DX: Z01.812 Encounter for preprocedural laboratory examination (principal); C67.2 Malignant neoplasm of lateral wall of bladder
CPT/HCPCS: 80048; 85025

== ENCOUNTER 2024-03-27 05:57 | Day surgery (SDC) | payer MEDICARE, BC ==
[2024-03-21 16:00] VITALS: BMI 26.7
--- NOTE | 2024-03-26 18:19 | P.GSHP ---
History of Present Illness H&P Date: 03/26/24 Chief Complaint: Bladder CA The patient is a 78-year-old white male who experienced gross painless hematuria in March 2022. CT scan showed a 3.8 cm right adrenal mass and multiple right renal cysts measuring up to 3.8 cm in size. Cystoscopy showed tumors located on the left lateral bladder wall measuring 3-4 cm in diameter. He underwent resection of the tumors, revealing low-grade noninvasive urothelial carcinoma. Gemcitabine was instilled into the bladder at the time of resection. He has been followed since that time and has had no recurrences. However, he has developed increased microhematuria in the past year. CT scan in December 2023 was unremarkable. Urine cytology in November 2023 showed few atypical cells. - Genitourinary (Male) Genitourinary: Denies dysuria, Denies flank pain, Denies hematuria Past Medical History Past Medical History: Atrial Fibrillation, Coronary Artery Disease (CAD), Cancer, Chest Pain / Angina, Heart Failure, Diabetes Mellitus, Hyperlipidemia, Myocardial Infarction ([place]), Pneumonia, Sleep Apnea/CPAP/BIPAP, Syncope, Thyroid Disorder, Vascular Disorder Additional Past Medical History / Comment(s): Cardiomyopathy, hx black stools, anemia, hemmorhoids, basal & squamous skin cancers., hx gout., hx low kidney function., pt states open sore left lower leg - tx at wound center at [facility] 2 years ago with surgury. See Cardiology [facility] & P. Last Myocardial Infarction Date:: 1989 History of Any Multi-Drug Resistant Organisms: None Reported Past Surgical History: AICD, Coronary Bypass/CABG, Heart Catheterization, Orthopedic Surgery, Pacemaker Additional Past Surgical History / Comment(s): 2008 AICD/pacemaker implant with generator change 2015, new device placed [address] Johnston 4 vessel CABG in 1991, right carotid endartectomy, AAA endograft/stent, left elbow bursa removed, EGD, colonoscopies, skin cancer removals, bilateral cataracts, trans uretheral resection of bladder tumor with instillation of chemo 06/2022. R carotid surgery. Past Anesthesia/Blood Transfusion Reactions: No Reported Reaction Additional Past Anesthesia/Blood Transfusion Reaction / Comment(s): no blood transfusions Type of Cardiac Device: Permanent Pacemaker, AICD Device Placement Date:: 2007 implant and gen change in 2015, new 2022 Smoking Status: Former smoker - Past Family History Father Family Medical History: Myocardial Infarction ([place]) Additional Family Medical History / Comment(s): AT 60 WITH [place]. Brother(s) Family Medical History: Coronary Artery Disease (CAD) Additional Family Medical History / Comment(s): CABG-TWIN BROTHER. Mother Family Medical History: Cancer Additional Family Medical History / Comment(s): MULTIPLE MYELOMA. Medications and Allergies Home Medications Medication Instructions Recorded Confirmed Type Aspirin 81 mg PO HS 03/30/15 03/21/24 History Atorvastatin Calcium [Lipitor] 40 mg PO MOWEFR 11/30/17 03/21/24 History Levothyroxine Sodium [Synthroid] 75 mcg PO AC-BRKFST 11/30/17 03/21/24 History Nitroglycerin Sl Tabs [Nitrostat] 0.4 mg SUBLINGUAL Q5M PRN tab 02/04/18 03/21/24 Rx Apixaban [Eliquis] 5 mg PO BID #60 tab 05/23/20 03/21/24 Rx Albuterol Nebulized [Ventolin 2.5 mg INHALATION QID PRN 05/09/21 03/21/24 History Nebulized] Amiodarone [Cordarone] 200 mg PO HS 05/09/21 03/21/24 History Sacubitril/Valsartan [Entresto 24 1 each PO BID 05/09/21 03/21/24 History mg-26 mg Tablet] Semaglutide [Ozempic] 0.5 mg SQ ESTRADA 05/09/21 03/21/24 History Spironolactone 12.5 mg PO DAILY 05/09/21 03/21/24 History carvediloL [Coreg] 12.5 mg PO BID 05/10/21 03/21/24 History Bio D Mulsion Forte Gtts 1 drop PO DAILY 07/01/21 03/21/24 History traZODone HCL [Desyrel] 50 mg PO HS 06/23/22 03/21/24 History Allergies Allergy/AdvReac Type Severity Reaction Status Date / Time No Known Allergies Allergy Verified 03/21/24 15:35 Surgical - Exam - General well developed, well nourished, no distress - Respiratory normal respiratory effort - Abdomen Abdomen: soft, non tender, no guarding, no rigid, no rebound - Genitourinary normal penis with no external lesions, testicles non-tender - Psychiatric oriented to time, oriented to person, oriented to place, speech is normal, memory intact Results - Imaging CT scan - abdomen: report reviewed Assessment and Plan (1) Malignant neoplasm of lateral wall of bladder Status: Acute Code(s): C67.2 - MALIGNANT NEOPLASM OF LATERAL WALL OF BLADDER SNOMED Code(s): 105237513 Plan: Cystoscopy, bilateral retrograde pyelograms, possible bladder biopsy, possible ureteroscopy. The procedure has been reviewed in detail with the patient, and both the rationale and potential risks have been discussed.
[2024-03-27] MEDS: IV FLUID CONTINUATION 1,000 ML IV ONE (06:40)
[2024-03-27 07:08] LABS: Glucose,Whole Blood 110 mg/dL (70-110)
[2024-03-27] MEDS: DEXAMETHASONE SOD PHOSPHATE 4 MG/ML 1 ML VIAL IVP STA (07:10)
[2024-03-27] MEDS: ONDANSETRON 4 MG/2 ML VIAL IVP STA (07:10)
[2024-03-27] MEDS: LACTATED RINGERS 1,000 ML BAG IV STA (07:11)
[2024-03-27] MEDS ORDERED: MIDAZOLAM 2 MG/2 ML VIAL ONE (07:34)
[2024-03-27] MEDS ORDERED: PROPOFOL 10 MG/ML 20 ML VIAL IV ONE (07:34)
[2024-03-27] MEDS ORDERED: LIDOCAINE 1% INJ 10MG/ML (20 ML MDV) ONE (07:34)
[2024-03-27] MEDS ORDERED: fentaNYL (PF) 50 MCG/ML 2 ML AMP ONE (07:34)
[2024-03-27] MEDS ORDERED: ROCURONIUM 10 MG/ML (5 ML VIAL) IV ONE (07:34)
[2024-03-27] MEDS ORDERED: NEOSTIGMINE 1 MG/ML 10 ML VIAL ONE (07:34)
[2024-03-27] MEDS ORDERED: GLYCOPYRROLATE 0.2 MG/ML 2 ML VIAL ONE (07:34)
[2024-03-27] MEDS ORDERED: DEXAMETHASONE SOD PHOSPHATE 4 MG/ML 1 ML VIAL IV ONE (08:01)
[2024-03-27] MEDS ORDERED: HYDROmorphone 0.5 MG/0.5 ML SYRINGE IVP PRN (08:01)
[2024-03-27] MEDS ORDERED: LACTATED RINGERS 1,000 ML IV SCH (08:01)
[2024-03-27] MEDS ORDERED: LIDOCAINE 1% (10MG/ML) FOR IV START INTRADERMA PRN (08:01)
[2024-03-27] MEDS ORDERED: ONDANSETRON 4 MG/2 ML VIAL IVP ONE (08:01)
[2024-03-27] MEDS: IOPAMIDOL-300 30ML BTL MISCELLANE ONE (08:12)
[2024-03-27 08:32] LABS: Glucose,Whole Blood 108 mg/dL (70-110)
[2024-03-27 08:34] VITALS: TEMP 97.3
--- NOTE | 2024-03-27 08:34 | P.OP ---
Date of Procedure: 03/27/24 Preoperative Diagnosis: Urothelial carcinoma the bladder Postoperative Diagnosis: Same Procedure(s) Performed: Cystoscopy, bilateral retrograde pyelograms Anesthesia: EDWINA Surgeon: Brayan Arguelles Estimated Blood Loss (ml): 0 IV fluids (ml): 500 Pathology: none sent Condition: stable Disposition: PACU Indications for Procedure: The patient is a 78-year-old white male who experienced gross painless hematuria in March 2022. CT scan showed a 3.8 cm right adrenal mass and multiple right renal cysts measuring up to 3.8 cm in size. Cystoscopy showed tumors located on the left lateral bladder wall measuring 3-4 cm in diameter. He underwent resection of the tumors, revealing low-grade noninvasive urothelial carcinoma. Gemcitabine was instilled into the bladder at the time of resection. He has been followed since that time and has had no recurrences. However, he has developed increased microhematuria in the past year. CT scan in December 2023 was unremarkable. Urine cytology in November 2023 showed few atypical cells. Operative Findings: No evidence of recurrent bladder cancer. Normal upper tracts. Description of Procedure: The patient was taken to the operating room and placed in the dorsolithotomy position, with legs supported in Robb stirrups. The external genitalia was prepped and draped sterilely. The 30 lens was used to introduce the 22-Spanish Stortz cystoscopic sheath through the urethra and into the bladder under direct vision. The prostatic urethra showed evidence of lateral lobe enlargement with visual occlusion. No urothelial changes were seen within the prostatic urethra. The bladder was examined in its entirety. Scarring was seen on the left bladder wall, due to prior resection. The ureteral orifice ease appeared normal. No tumors were seen. Using a 10 Spanish cone-tip catheter, bilateral retrograde pyelograms were performed. Fluoroscopy was utilized to visualize the ureters, which were both normal in course and caliber. 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 The systems drained promptly. The bladder was emptied and the cystoscope removed. The patient tolerated the procedure well and was taken to the recovery room in stable condition.
--- NOTE | 2024-03-27 08:43 | FL ---
EXAMINATION TYPE: FL urography retrograde DATE OF EXAM: 03/27/2024 COMPARISON: NONE HISTORY: Kidney stones TECHNIQUE: Fluoroscopy. FINDINGS: Fluoroscopic guidance was provided during bilateral retrograde urogram procedure performed by Dr. Arguelles. A total of 61.5 seconds of fluoroscopic time was utilized during the procedure and 1 5 spot images was acquired. Total dose area product (DAP) in uGy*m?, mGy*cm? (or similar): 9.7040. P lease refer to procedure note for further details if necessary. IMPRESSION: As Above. [facility], , 03/27/2024 8:41 AM
[2024-03-27 09:11] VITALS: RESP 18
[2024-03-27 09:43] VITALS: BP 162/70; PULSE 76
== END 2024-03-27 09:51 | disposition home or self-care (01) ==
LOC: OR 05:57
PROVIDERS: ATTEND Urology
DX: R31.29 Other microscopic hematuria (principal); N40.1 Benign prostatic hyperplasia with lower urinary tract symptoms; N13.8 Other obstructive and reflux uropathy; I48.91 Unspecified atrial fibrillation; I50.9 Heart failure, unspecified; I42.9 Cardiomyopathy, unspecified; I25.119 Atherosclerotic heart disease of native coronary artery with unspecified angina pectoris; I25.2 Old myocardial infarction; Z95.1 Presence of aortocoronary bypass graft; E11.51 Type 2 diabetes mellitus with diabetic peripheral angiopathy without gangrene; E78.5 Hyperlipidemia, unspecified; G47.33 Obstructive sleep apnea (adult) (pediatric); E07.9 Disorder of thyroid, unspecified; N28.9 Disorder of kidney and ureter, unspecified; E27.9 Disorder of adrenal gland, unspecified; N28.1 Cyst of kidney, acquired; Z79.82 Long term (current) use of aspirin; Z79.890 Hormone replacement therapy; Z79.01 Long term (current) use of anticoagulants; Z79.85 Long-term (current) use of injectable non-insulin antidiabetic drugs; Z79.899 Other long term (current) drug therapy; Z87.891 Personal history of nicotine dependence; Z85.51 Personal history of malignant neoplasm of bladder; Z95.810 Presence of automatic (implantable) cardiac defibrillator
CPT/HCPCS: 74420; 52005; C1758; J2250; J1100; J2710; J0690; J2405; J2003; J3010; J2704; J1596

== ENCOUNTER → 2024-10-17 | Outpatient (CLI) | payer MEDICARE, BC ==
--- NOTE | 2024-10-17 16:03 | US ---
EXAMINATION TYPE: US kidneys/renal and bladder DATE OF EXAM: 10/17/2024 COMPARISON: NONE CLINICAL INDICATION: Male, 79 years old with history of C67.2 MALIGNANT NEOPLASM OF LATERAL WALL OF B LADDE; Patient denies any signs, symptoms, or relevant history. States microscopic hematuria TECHNIQUE: Grayscale imaging of the bilateral kidneys and urinary bladder: FINDINGS: EXAM MEASUREMENTS: Right Kidney: 12.4 x 5.6 x 5.6 cm Left Kidney: 13.6 x 6.2 x 5.1 cm Post Void Residual Volume: NA mL Right Kidney: wnl, no evidence for hydronephrosis, mass or renal calculus. Simple cysts seen Left Kidney: wnl, no evidence for hydronephrosis, mass or renal calculus. Bladder: Bladder is under distended and limited. No calcifications. No definitive wall thickening cor responding to history of lateral bladder wall mass. Bilateral Jets seen: Yes Normal Post Void Residual: NA There is no evidence for hydronephrosis at this point in time. No nephrolithiasis is seen. No liz s are identified. The urinary bladder is anechoic. IMPRESSION: 1. Bilateral simple appearing renal cysts. No hydronephrosis or nephrolithiasis. 2. Prostatomegaly. Reported history of lateral bladder wall mass not as well seen by ultrasound. Bradly elate clinically. If warranted a CT scan of the pelvis could be obtained. [facility], , 10/17/2024 4:01 PM
== END | disposition home or self-care (01) ==
LOC: RADUSWWP 15:11
PROVIDERS: ATTEND Urology
DX: C67.2 Malignant neoplasm of lateral wall of bladder (principal); N28.1 Cyst of kidney, acquired; N40.0 Benign prostatic hyperplasia without lower urinary tract symptoms
CPT/HCPCS: 76770